=== PATIENT | female | born 1940 | race American Indian/Alaskan Native ===

== ENCOUNTER 2020-10-29 14:31 | Inpatient (IN) | payer MEDICARE ==
[2020-10-30 06:57] LABS: Basophils % (Auto) 0.4 % (0.0-1.8); Eosinophils # (Auto) 0.1 K/mm3 (0.0-0.4); Eosinophils % (Auto) 1.6 % (0.0-4.3); Hematocrit 34.4 % (30.3-42.9); Hemoglobin 11.6 gm/dl (10.1-14.3); Lymphocytes # (Auto) 1.9 K/mm3 (1.2-5.4); Lymphocytes % (Auto) 32.6 % (13.4-35.0); Mean Corpuscular HGB Conc 34 % (30-34); Mean Corpuscular Volume 95 fl (79-97); Monocytes # (Auto) 0.7 K/mm3 (0.0-0.8); Monocytes % (Auto) 11.1 % (0.0-7.3); Platelet Count 283 K/mm3 (140-440); Red Blood Count 3.61 M/mm3 (3.65-5.03)
[2020-10-30 07:58] LABS: Blood Urea Nitrogen 15 mg/dL (7-17); Chol/HDL Ratio 3.01 %; HDL Cholesterol 52 mg/dL (40-59); Hemolysis Index 2; LDL Cholesterol,Direct 97 mg/dL (50-130)
[2020-10-30 07:59] LABS: BUN/Creatinine Ratio 21
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
[2020-10-30] MEDS ORDERED: TRAMADOL HCL PO PRN (08:27)
[2020-10-30] MEDS ORDERED: SERTRALINE HCL PO SCH (10:00)
[2020-10-30] MEDS ORDERED: METFORMIN HCL PO SCH (10:00)
[2020-10-30] MEDS ORDERED: DEPAKOTE PO SCH ×2 (10:00→22:00)
[2020-10-30] MEDS ORDERED: NORVASC PO SCH (10:00)
[2020-10-30] MEDS ORDERED: TRULICITY SUB-Q SCH (10:00)
[2020-10-30] MEDS ORDERED: OMEPRAZOLE PO SCH (10:00)
[2020-10-30] MEDS ORDERED: traMADol 50 MG TAB PO PRN (11:00)
[2020-10-30] MEDS: DIVALPROEX DR 125 MG TAB PO SCH (11:55)
[2020-10-30] MEDS: PANTOPRAZOLE 20 MG TAB PO SCH (11:56)
[2020-10-30] MEDS: metFORMIN 500 MG TAB PO SCH ×2 (11:56→17:12)
[2020-10-30] MEDS: INSULIN LISPRO 100 UNIT/ML VIAL 3 mL SUB-Q SCH ×3 (11:57→22:01)
[2020-10-30] MEDS: amLODIPine 5 MG TAB PO SCH (11:57)
[2020-10-30] MEDS: SERTRALINE 25 MG TAB PO SCH (12:00)
[2020-10-30] MEDS ORDERED: NON-FORMULARY EACH (Gabapentin Capsule) PO SCH (14:00)
[2020-10-30] MEDS: GABAPENTIN 300 MG CAP PO SCH ×2 (14:14→20:45)
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
[2020-10-30] MEDS: DIVALPROEX DR 250 MG TAB PO SCH (22:00)
--- NOTE | 2020-10-31 07:47 | Progress Note ---
Subjective Date of service: 10/31/20 Principal diagnosis: Dementia with Behavioral Disturbance Subjective Comment: During my interview with the patient this morning, she is lying down awake. She is calm and cooperative. The patient says she feels "pretty good" and slept "good." She denies SI/HI and hallucinations of any kind. The patient says, "I'm ready to go but not back to [facility]." Reason for continued inpatient treatment: The patient appears to be at her base line. Will continue to monitor her for behavioral issues and plan for a safe discharge back to [place]. REVIEW OF SYSTEMS Constitutional: Negative for weight loss ENT: Negative for stridor Respiratory: Negative for cough or hemoptysis All other systems reviewed and are negative MENTAL STATUS EXAMINATION General Appearance and Behavior: Age appropriate, good hygiene, wearing appropriate clothes, good eye contact, calm and cooperative. Polite Cooperation: Participating/engaged Psychomotor Behavior: Psychomotor normal Mood: "pretty good" Affect and affective range: Congruent with mood Thought Process: goal oriented Thought Content: None Speech: Normal rate, volume and rhythm Suicidal Ideation: Denies Homicidal Ideation: Denies Impulse Control: Normal Insight and Judgment: Limited insight and judgment Memory: Limited Attention: Normal Orientation: Alert, oriented Assessment and Plan (1) Dementia w/Behavioral Disturbance Current Visit: Yes Status: Acute TREATMENT PLAN Patient admitted for inpatient psychiatric evaluation, medication adjustment and close monitoring The patient's behavior, mood, sleep and appetite will be closely monitored. Patient enrolled in individual and group therapeutic sessions and encouraged to attend. Patient provided with a safe and structured environment. Patient's physical health needs will be addressed by the Hospitalist. Hospitalist Consulted Labs including CBC, CMP, Lipid profile and Hemoglobin A1C levels ordered for baseline reference Social Assessment will be completed and the Hair Rooting Machine Operator will work with patient and family to ensure a suitable and safe disposition Medication adjustment will be made as clinically indicated Continue current treatment regimen Usual Wellness Nondenominational/Preservation: - Start Trazodone 50 mg po QHS - Start Melatonin 5 mg po QHS to promote circadian rhythm - Start [place] [employer]-3 for brain health, reduce impulsivity, and as adjunctive treatment for mood disorder, continue upon discharge given overall benefits. - Start B1 prophylaxis with 200 mg po for 5 days The patient agreed on the treatment plan, understood the risk, benefit, alternative treatment, potential consequence of no treatment, and gave informed consent. Initial Certification I certify that the inpatient psychiatric services are required for treatment that could reasonably be expected to improve the patient's condition for aggression and irritability Estimated days: 7 Post hospital care: primary care provider, psychiatric provider The case was staffed with Dr. Srinivasan Medications and Allergies Allergies Allergy/AdvReac Type Severity Reaction Status Date / Time No Known Allergies Allergy Unverified 10/29/20 14:33 Home Medications Medication Instructions Recorded Confirmed Last Taken Type Depakote Dr 125 mg PO DAILY 10/29/20 10/29/[address] 250 mg PO HS 10/29/20 10/29/20 Unknown History Gabapentin 300 mg PO TID 10/29/20 10/29/20 Unknown History Metformin HCl 1,000 mg PO BID 10/29/20 10/29/20 Unknown History Norvasc 2.5 mg PO DAILY 10/29/20 10/29/20 Unknown History Omeprazole 20 mg PO DAILY 10/29/20 10/29/20 Unknown History Sertraline HCl 75 mg PO DAILY 10/29/20 10/29/20 Unknown History Tramadol HCl 50 mg PO Q6HR PRN 10/29/20 10/29/20 Unknown History Trulicity 0.75 mg SUB-Q QWEEK 10/29/20 10/29/20 Unknown History Active Meds: Active Medications Amlodipine Besylate (Amlodipine 5 Mg Tab) 2.5 mg PO QDAY [facility] Last Admin: 10/30/20 11:57 Dose: Not Given Documented by: Divalproex Sodium (Divalproex Dr 125 Mg Tab) 125 mg PO DAILY [facility] Last Admin: 10/30/20 11:55 Dose: 125 mg Documented by: Divalproex Sodium (Divalproex Dr 250 Mg Tab) 250 mg PO QHS [facility] Last Admin: 10/30/20 22:00 Dose: 250 mg Documented by: Gabapentin (Gabapentin 300 Mg Cap) 300 mg PO TID [facility] Last Admin: 10/30/20 20:45 Dose: 300 mg Documented by: Insulin Human Lispro (Insulin Lispro 100 Unit/Ml Vial 3 Ml) 0 unit SUB-Q ACHS [facility] Last Admin: 10/30/20 22:01 Dose: Not Given Documented by: Metformin HCl (Metformin 500 Mg Tab) 1,000 mg PO BIDDIAB [facility] Last Admin: 10/30/20 17:12 Dose: 1,000 mg Documented by: Miscellaneous Medication (Trulicity) 0.75 mg SUB-Q QWEEK [facility] Pantoprazole Sodium (Pantoprazole 20 Mg Tab) 20 mg PO QDAY [facility] Last Admin: 10/30/20 11:56 Dose: 20 mg Documented by: Sertraline HCl (Sertraline 25 Mg Tab) 75 mg PO QDAY [facility] Last Admin: 10/30/20 12:00 Dose: 75 mg Documented by: Tramadol HCl (Tramadol 50 Mg Tab) 50 mg PO Q6H PRN PRN Reason: Pain, Moderate (4-6) Results - Results Labs/Vitals: Laboratory Last Values WBC 5.9 K/mm3 (4.5-11.0) 10/30/20 06:16 RBC 3.61 M/mm3 (3.65-5.03) L 10/30/20 06:16 Hgb 11.6 gm/dl (10.1-14.3) 10/30/20 06:16 Hct 34.4 % (30.3-42.9) 10/30/20 06:16 MCV 95 fl (79-97) 10/30/20 06:16 MCH 32 pg (28-32) 10/30/20 06:16 MCHC 34 % (30-34) 10/30/20 06:16 RDW 17.0 % (13.2-15.2) H 10/30/20 06:16 Plt Count 283 K/mm3 (140-440) 10/30/20 06:16 Lymph % (Auto) 32.6 % (13.4-35.0) 10/30/20 06:16 [place] % (Auto) 11.1 % (0.0-7.3) H 10/30/20 06:16 Eos % (Auto) 1.6 % (0.0-4.3) 10/30/20 06:16 Baso % (Auto) 0.4 % (0.0-1.8) 10/30/20 06:16 Lymph # (Auto) 1.9 K/mm3 (1.2-5.4) 10/30/20 06:16 [place] # (Auto) 0.7 K/mm3 (0.0-0.8) 10/30/20 06:16 Eos # (Auto) 0.1 K/mm3 (0.0-0.4) 10/30/20 06:16 Baso # (Auto) 0.0 K/mm3 (0.0-0.1) 10/30/20 06:16 Seg Neutrophils % 54.3 % (40.0-70.0) 10/30/20 06:16 Seg Neutrophils # 3.2 K/mm3 (1.8-7.7) 10/30/20 06:16 Sodium 136 mmol/L (137-145) L 10/30/20 06:16 Potassium 4.7 mmol/L (3.6-5.0) 10/30/20 06:16 Chloride 103.1 mmol/L (98-107) 10/30/20 06:16 Carbon Dioxide 24 mmol/L (22-30) 10/30/20 06:16 Anion Gap 14 mmol/L 10/30/20 06:16 BUN 15 mg/dL (7-17) 10/30/20 06:16 Creatinine 0.7 mg/dL (0.6-1.2) 10/30/20 06:16 Estimated GFR > 60 ml/min 10/30/20 06:16 BUN/Creatinine Ratio 21 % 10/30/20 06:16 Glucose 107 mg/dL (65-100) H 10/30/20 06:16 POC Glucose 107 mg/dL (70-105) H 10/30/20 19:18 Hemoglobin A1c 6.7 % (4-6) H 10/30/20 06:16 Calcium 9.0 mg/dL (8.4-10.2) 10/30/20 06:16 Triglycerides 74 mg/dL (2-149) 10/30/20 06:16 Cholesterol 157 mg/dL (50-199) 10/30/20 06:16 LDL Cholesterol Direct 97 mg/dL (50-130) 10/30/20 06:16 HDL Cholesterol 52 mg/dL (40-59) 10/30/20 06:16 Cholesterol/HDL Ratio 3.01 % 10/30/20 06:16 TSH 0.851 mlU/mL (0.270-4.200) 10/30/20 06:16 Last Vital Signs Temp 97.6 F 10/30/20 08:43 Pulse 87 10/30/20 08:43 Resp 20 10/30/20 08:43 BP 104/69 10/30/20 08:43 Pulse Ox 100 10/30/20 08:43
[2020-10-31] MEDS: SERTRALINE 25 MG TAB PO SCH (10:43)
[2020-10-31] MEDS: metFORMIN 500 MG TAB PO SCH ×2 (10:43→17:02)
[2020-10-31] MEDS: DIVALPROEX DR 125 MG TAB PO SCH (10:43)
[2020-10-31] MEDS: GABAPENTIN 300 MG CAP PO SCH ×3 (10:43→20:44)
[2020-10-31] MEDS: amLODIPine 5 MG TAB PO SCH (10:44)
[2020-10-31] MEDS: INSULIN LISPRO 100 UNIT/ML VIAL 3 mL SUB-Q SCH ×4 (10:45→21:06)
[2020-10-31] MEDS: PANTOPRAZOLE 20 MG TAB PO SCH (10:46)
[2020-10-31] MEDS: DIVALPROEX DR 250 MG TAB PO SCH (21:05)
[2020-11-01] MEDS: INSULIN LISPRO 100 UNIT/ML VIAL 3 mL SUB-Q SCH ×4 (08:00→21:03)
--- NOTE | 2020-11-01 08:58 | Progress Note ---
Subjective Date of service: 11/01/20 Principal diagnosis: Dementia with Behavioral Disturbance Subjective Comment: During my interview with the patient this morning, the patient is sitting in the dayroom. She is asking me about going home. The patient says "I feel pretty good now." She denies SI/HI or hallucinations of any kind. Reason for continued inpatient treatment: The patient appears to be at her baseline. Will continue to monitor her for behavioral issues and plan for a safe discharge back to [place]. REVIEW OF SYSTEMS Constitutional: Negative for weight loss ENT: Negative for stridor Respiratory: Negative for cough or hemoptysis All other systems reviewed and are negative MENTAL STATUS EXAMINATION General Appearance and Behavior: Age appropriate, good hygiene, wearing appropriate clothes, good eye contact, calm and cooperative. Polite Cooperation: Participating/engaged Psychomotor Behavior: Psychomotor normal Mood: "pretty good" Affect and affective range: Congruent with mood Thought Process: goal oriented Thought Content: None Speech: Normal rate, volume and rhythm Suicidal Ideation: Denies Homicidal Ideation: Denies Impulse Control: Normal Insight and Judgment: Limited insight and judgment Memory: Limited Attention: Normal Orientation: Alert, oriented Assessment and Plan (1) Dementia w/Behavioral Disturbance Current Visit: Yes Status: Acute TREATMENT PLAN Patient admitted for inpatient psychiatric evaluation, medication adjustment and close monitoring The patient's behavior, mood, sleep and appetite will be closely monitored. Patient enrolled in individual and group therapeutic sessions and encouraged to attend. Patient provided with a safe and structured environment. Patient's physical health needs will be addressed by the Hospitalist. Hospitalist Consulted Labs including CBC, CMP, Lipid profile and Hemoglobin A1C levels ordered for baseline reference Social Assessment will be completed and the Med Admin will work with patient and family to ensure a suitable and safe disposition Medication adjustment will be made as clinically indicated Continue current treatment regimen Usual Wellness [place]/Preservation: - Start Trazodone 50 mg po QHS - Start Melatonin 5 mg po QHS to promote circadian rhythm - Start [place]-3 for brain health, reduce impulsivity, and as adjunctive treatment for mood disorder, continue upon discharge given overall benefits. - Start B1 prophylaxis with 200 mg po for 5 days The patient agreed on the treatment plan, understood the risk, benefit, alternative treatment, potential consequence of no treatment, and gave informed consent. Estimated days: 2 Post hospital care: primary care provider, psychiatric provider The case was staffed with Dr. Srinivasan Medications and Allergies Allergies Allergy/AdvReac Type Severity Reaction Status Date / Time No Known Allergies Allergy Unverified 10/29/20 14:33 Home Medications Medication Instructions Recorded Confirmed Last Taken Type Depakote Dr 125 mg PO DAILY 10/29/20 10/29/[address] 250 mg PO HS 10/29/20 10/29/20 Unknown History Gabapentin 300 mg PO TID 10/29/20 10/29/20 Unknown History Metformin HCl 1,000 mg PO BID 10/29/20 10/29/20 Unknown History Norvasc 2.5 mg PO DAILY 10/29/20 10/29/20 Unknown History Omeprazole 20 mg PO DAILY 10/29/20 10/29/20 Unknown History Sertraline HCl 75 mg PO DAILY 10/29/20 10/29/20 Unknown History Tramadol HCl 50 mg PO Q6HR PRN 10/29/20 10/29/20 Unknown History Trulicity 0.75 mg SUB-Q QWEEK 10/29/20 10/29/20 Unknown History Active Meds: Active Medications Amlodipine Besylate (Amlodipine 5 Mg Tab) 2.5 mg PO QDAY [facility] [place] Last Admin: 10/31/20 10:44 Dose: Not Given Documented by: Divalproex Sodium (Divalproex Dr 125 Mg Tab) 125 mg PO DAILY [facility] [place] Last Admin: 10/31/20 10:43 Dose: 125 mg Documented by: Divalproex Sodium (Divalproex Dr 250 Mg Tab) 250 mg PO QHS [facility] [place] Last Admin: 10/31/20 21:05 Dose: 250 mg Documented by: Gabapentin (Gabapentin 300 Mg Cap) 300 mg PO TID [facility] [place] Last Admin: 10/31/20 20:44 Dose: 300 mg Documented by: Insulin Human Lispro (Insulin Lispro 100 Unit/Ml Vial 3 Ml) 0 unit SUB-Q ACHS [facility] [place] Last Admin: 10/31/20 21:06 Dose: Not Given Documented by: Metformin HCl (Metformin 500 Mg Tab) 1,000 mg PO BIDDIAB [facility] [place] Last Admin: 10/31/20 17:02 Dose: 1,000 mg Documented by: Miscellaneous Medication (Trulicity) 0.75 mg SUB-Q QWEEK [facility] [place] Pantoprazole Sodium (Pantoprazole 20 Mg Tab) 20 mg PO QDAY [facility] [place] Last Admin: 10/31/20 10:46 Dose: 20 mg Documented by: Sertraline HCl (Sertraline 25 Mg Tab) 75 mg PO QDAY [facility] Last Admin: 10/31/20 10:43 Dose: 75 mg Documented by: Tramadol HCl (Tramadol 50 Mg Tab) 50 mg PO Q6H PRN PRN Reason: Pain, Moderate (4-6) Results - Results Labs/Vitals: Laboratory Last Values WBC 5.9 K/mm3 (4.5-11.0) 10/30/20 06:16 RBC 3.61 M/mm3 (3.65-5.03) L 10/30/20 06:16 Hgb 11.6 gm/dl (10.1-14.3) 10/30/20 06:16 Hct 34.4 % (30.3-42.9) 10/30/20 06:16 MCV 95 fl (79-97) 10/30/20 06:16 MCH 32 pg (28-32) 10/30/20 06:16 MCHC 34 % (30-34) 10/30/20 06:16 RDW 17.0 % (13.2-15.2) H 10/30/20 06:16 Plt Count 283 K/mm3 (140-440) 10/30/20 06:16 Lymph % (Auto) 32.6 % (13.4-35.0) 10/30/20 06:16 [place] % (Auto) 11.1 % (0.0-7.3) H 10/30/20 06:16 Eos % (Auto) 1.6 % (0.0-4.3) 10/30/20 06:16 Baso % (Auto) 0.4 % (0.0-1.8) 10/30/20 06:16 Lymph # (Auto) 1.9 K/mm3 (1.2-5.4) 10/30/20 06:16 [place] # (Auto) 0.7 K/mm3 (0.0-0.8) 10/30/20 06:16 Eos # (Auto) 0.1 K/mm3 (0.0-0.4) 10/30/20 06:16 Baso # (Auto) 0.0 K/mm3 (0.0-0.1) 10/30/20 06:16 Seg Neutrophils % 54.3 % (40.0-70.0) 10/30/20 06:16 Seg Neutrophils # 3.2 K/mm3 (1.8-7.7) 10/30/20 06:16 Sodium 136 mmol/L (137-145) L 10/30/20 06:16 Potassium 4.7 mmol/L (3.6-5.0) 10/30/20 06:16 Chloride 103.1 mmol/L (98-107) 10/30/20 06:16 Carbon Dioxide 24 mmol/L (22-30) 10/30/20 06:16 Anion Gap 14 mmol/L 10/30/20 06:16 BUN 15 mg/dL (7-17) 10/30/20 06:16 Creatinine 0.7 mg/dL (0.6-1.2) 10/30/20 06:16 Estimated GFR > 60 ml/min 10/30/20 06:16 BUN/Creatinine Ratio 21 % 10/30/20 06:16 Glucose 107 mg/dL (65-100) H 10/30/20 06:16 POC Glucose 95 mg/dL (70-105) 11/01/20 06:28 Hemoglobin A1c 6.7 % (4-6) H 10/30/20 06:16 Calcium 9.0 mg/dL (8.4-10.2) 10/30/20 06:16 Triglycerides 74 mg/dL (2-149) 10/30/20 06:16 Cholesterol 157 mg/dL (50-199) 10/30/20 06:16 LDL Cholesterol Direct 97 mg/dL (50-130) 10/30/20 06:16 HDL Cholesterol 52 mg/dL (40-59) 10/30/20 06:16 Cholesterol/HDL Ratio 3.01 % 10/30/20 06:16 TSH 0.851 mlU/mL (0.270-4.200) 10/30/20 06:16 Last Vital Signs Temp 97.3 F L 10/31/20 19:35 Pulse 89 10/31/20 19:35 Resp 16 10/31/20 19:35 BP 101/58 10/31/20 19:35 Pulse Ox 100 10/31/20 19:35
[2020-11-01] MEDS: metFORMIN 500 MG TAB PO SCH ×2 (09:28→17:07)
[2020-11-01] MEDS: DIVALPROEX DR 125 MG TAB PO SCH (09:28)
[2020-11-01] MEDS: GABAPENTIN 300 MG CAP PO SCH ×3 (09:28→20:19)
[2020-11-01] MEDS: PANTOPRAZOLE 20 MG TAB PO SCH (09:28)
[2020-11-01] MEDS: SERTRALINE 25 MG TAB PO SCH (09:29)
[2020-11-01] MEDS: amLODIPine 5 MG TAB PO SCH (09:30)
[2020-11-01] MEDS: DIVALPROEX DR 250 MG TAB PO SCH (21:02)
[2020-11-02] MEDS ORDERED: clonazePAM 0.5 MG TAB PO PRN (08:55)
--- NOTE | 2020-11-02 08:55 | Progress Note ---
Subjective Date of service: 11/02/20 Principal diagnosis: Dementia with Behavioral Disturbance Subjective Comment: During my interview with the patient this morning, the patient lying down. She is asking to go home. She denies SI/HI. She also denies hallucinations of any kind. Although the patient has been calm, It was reported that the patient's irritability and aggression was worsening at the halfway. Reason for continued inpatient treatment: The patient appears to be at her baseline. Will continue to monitor her for behavioral issues and plan for a safe discharge back to [place]. REVIEW OF SYSTEMS Constitutional: Negative for weight loss ENT: Negative for stridor Respiratory: Negative for cough or hemoptysis All other systems reviewed and are negative MENTAL STATUS EXAMINATION General Appearance and Behavior: Age appropriate, good hygiene, wearing appropriate clothes, good eye contact, calm and cooperative. Polite Cooperation: Participating/engaged Psychomotor Behavior: Psychomotor normal Mood: "pretty good" Affect and affective range: Congruent with mood Thought Process: goal oriented Thought Content: None Speech: Normal rate, volume and rhythm Suicidal Ideation: Denies Homicidal Ideation: Denies Impulse Control: Normal Insight and Judgment: Limited insight and judgment Memory: Limited Attention: Normal Orientation: Alert, oriented Assessment and Plan (1) Dementia w/Behavioral Disturbance Current Visit: Yes Status: Acute TREATMENT PLAN Patient admitted for inpatient psychiatric evaluation, medication adjustment and close monitoring The patient's behavior, mood, sleep and appetite will be closely monitored. Patient enrolled in individual and group therapeutic sessions and encouraged to attend. Patient provided with a safe and structured environment. Patient's physical health needs will be addressed by the Hospitalist. Hospitalist Consulted Labs including CBC, CMP, Lipid profile and Hemoglobin A1C levels ordered for baseline reference Social Assessment will be completed and the Curtain Fitter will work with patient and family to ensure a suitable and safe disposition Medication adjustment will be made as clinically indicated Start Risperidone 0.25mg po BID Usual Wellness [employer]/Preservation: - Start Trazodone 50 mg po QHS - Start Melatonin 5 mg po QHS to promote circadian rhythm - Start [place]-3 for brain health, reduce impulsivity, and as adjunctive treatment for mood disorder, continue upon discharge given overall benefits. - Start B1 prophylaxis with 200 mg po for 5 days The patient agreed on the treatment plan, understood the risk, benefit, alternative treatment, potential consequence of no treatment, and gave informed consent. Estimated days: 2 Post hospital care: primary care provider, psychiatric provider The case was staffed with Dr. Srinivasan Medications and Allergies Allergies Allergy/AdvReac Type Severity Reaction Status Date / Time No Known Allergies Allergy Unverified 10/29/20 14:33 Home Medications Medication Instructions Recorded Confirmed Last Taken Type Gabapentin 300 mg PO TID 10/29/20 10/29/20 Unknown History Metformin HCl 1,000 mg PO BID 10/29/20 10/29/20 Unknown History Norvasc 2.5 mg PO DAILY 10/29/20 10/29/20 Unknown History Omeprazole 20 mg PO DAILY 10/29/20 10/29/20 Unknown History Tramadol HCl 50 mg PO Q6HR PRN 10/29/20 10/29/20 Unknown History Trulicity 0.75 mg SUB-Q QWEEK 10/29/20 10/29/[address] 125 mg PO DAILY #30 11/02/[address] 250 mg PO HS #30 11/02/20 Unknown Rx Sertraline HCl 75 mg PO DAILY #30 11/02/20 Unknown Rx Active Meds: Active Medications Amlodipine Besylate (Amlodipine 5 Mg Tab) 2.5 mg PO QDAY [facility] Last Admin: 11/01/20 09:30 Dose: Not Given Documented by: Divalproex Sodium (Divalproex Dr 125 Mg Tab) 125 mg PO DAILY [facility] Last Admin: 11/01/20 09:28 Dose: 125 mg Documented by: Divalproex Sodium (Divalproex Dr 250 Mg Tab) 250 mg PO QHS [facility] Last Admin: 11/01/20 21:02 Dose: 250 mg Documented by: Gabapentin (Gabapentin 300 Mg Cap) 300 mg PO TID [facility] Last Admin: 11/01/20 20:19 Dose: 300 mg Documented by: Insulin Human Lispro (Insulin Lispro 100 Unit/Ml Vial 3 Ml) 0 unit SUB-Q ACHS [facility] Last Admin: 11/01/20 21:03 Dose: Not Given Documented by: Metformin HCl (Metformin 500 Mg Tab) 1,000 mg PO BIDDIAB [facility] Last Admin: 11/01/20 17:07 Dose: 1,000 mg Documented by: Miscellaneous Medication (Trulicity) 0.75 mg SUB-Q QWEEK [facility] Pantoprazole Sodium (Pantoprazole 20 Mg Tab) 20 mg PO QDAY [facility] Last Admin: 11/01/20 09:28 Dose: 20 mg Documented by: Sertraline HCl (Sertraline 25 Mg Tab) 75 mg PO QDAY [facility] Last Admin: 11/01/20 09:29 Dose: 75 mg Documented by: Tramadol HCl (Tramadol 50 Mg Tab) 50 mg PO Q6H PRN PRN Reason: Pain, Moderate (4-6) Results - Results Labs/Vitals: Laboratory Last Values WBC 5.9 K/mm3 (4.5-11.0) 10/30/20 06:16 RBC 3.61 M/mm3 (3.65-5.03) L 10/30/20 06:16 Hgb 11.6 gm/dl (10.1-14.3) 10/30/20 06:16 Hct 34.4 % (30.3-42.9) 10/30/20 06:16 MCV 95 fl (79-97) 10/30/20 06:16 MCH 32 pg (28-32) 10/30/20 06:16 MCHC 34 % (30-34) 10/30/20 06:16 RDW 17.0 % (13.2-15.2) H 10/30/20 06:16 Plt Count 283 K/mm3 (140-440) 10/30/20 06:16 Lymph % (Auto) 32.6 % (13.4-35.0) 10/30/20 06:16 [place] % (Auto) 11.1 % (0.0-7.3) H 10/30/20 06:16 Eos % (Auto) 1.6 % (0.0-4.3) 10/30/20 06:16 Baso % (Auto) 0.4 % (0.0-1.8) 10/30/20 06:16 Lymph # (Auto) 1.9 K/mm3 (1.2-5.4) 10/30/20 06:16 [place] # (Auto) 0.7 K/mm3 (0.0-0.8) 10/30/20 06:16 Eos # (Auto) 0.1 K/mm3 (0.0-0.4) 10/30/20 06:16 Baso # (Auto) 0.0 K/mm3 (0.0-0.1) 10/30/20 06:16 Seg Neutrophils % 54.3 % (40.0-70.0) 10/30/20 06:16 Seg Neutrophils # 3.2 K/mm3 (1.8-7.7) 10/30/20 06:16 Sodium 136 mmol/L (137-145) L 10/30/20 06:16 Potassium 4.7 mmol/L (3.6-5.0) 10/30/20 06:16 Chloride 103.1 mmol/L (98-107) 10/30/20 06:16 Carbon Dioxide 24 mmol/L (22-30) 10/30/20 06:16 Anion Gap 14 mmol/L 10/30/20 06:16 BUN 15 mg/dL (7-17) 10/30/20 06:16 Creatinine 0.7 mg/dL (0.6-1.2) 10/30/20 06:16 Estimated GFR > 60 ml/min 10/30/20 06:16 BUN/Creatinine Ratio 21 % 10/30/20 06:16 Glucose 107 mg/dL (65-100) H 10/30/20 06:16 POC Glucose 109 mg/dL (70-105) H 11/02/20 06:16 Hemoglobin A1c 6.7 % (4-6) H 10/30/20 06:16 Calcium 9.0 mg/dL (8.4-10.2) 10/30/20 06:16 Triglycerides 74 mg/dL (2-149) 10/30/20 06:16 Cholesterol 157 mg/dL (50-199) 10/30/20 06:16 LDL Cholesterol Direct 97 mg/dL (50-130) 10/30/20 06:16 HDL Cholesterol 52 mg/dL (40-59) 10/30/20 06:16 Cholesterol/HDL Ratio 3.01 % 10/30/20 06:16 TSH 0.851 mlU/mL (0.270-4.200) 10/30/20 06:16 Last Vital Signs Temp 98.3 F 11/01/20 22:00 Pulse 84 11/01/20 22:00 Resp 18 11/01/20 22:00 BP 96/48 11/01/20 22:00 Pulse Ox 100 11/01/20 22:00
[2020-11-02] MEDS: GABAPENTIN 300 MG CAP PO SCH ×3 (08:56→21:35)
[2020-11-02] MEDS: INSULIN LISPRO 100 UNIT/ML VIAL 3 mL SUB-Q SCH ×4 (08:56→22:05)
[2020-11-02] MEDS: metFORMIN 500 MG TAB PO SCH ×2 (08:56→16:26)
[2020-11-02] MEDS: PANTOPRAZOLE 20 MG TAB PO SCH (09:33)
[2020-11-02] MEDS: SERTRALINE 25 MG TAB PO SCH (09:33)
[2020-11-02] MEDS: DIVALPROEX DR 125 MG TAB PO SCH (09:33)
[2020-11-02] MEDS: amLODIPine 5 MG TAB PO SCH (09:33)
[2020-11-02] MEDS: risperiDONE 0.25 MG TAB PO SCH ×2 (09:34→21:35)
[2020-11-02] MEDS ORDERED: risperiDONE 0.25 MG TAB PO SCH (10:00)
[2020-11-02] MEDS: DIVALPROEX DR 250 MG TAB PO SCH (21:35)
[2020-11-03] MEDS: INSULIN LISPRO 100 UNIT/ML VIAL 3 mL SUB-Q SCH (07:30)
--- NOTE | 2020-11-03 08:58 | Discharge Summary ---
Providers - Providers Date of Admission: 10/29/20 17:52 Date of discharge: 11/03/20 Attending physician: ALINE SAHA MD 10/29/20 15:34 Consult to Physician [CONS] Routine Comment: Consulting Provider: TAYE URBINA Physician Instructions: Reason For Exam: Medic [place] Primary care physician: POTATO CHIP SORTER Hospitalization Reason for admission: aggression Admitting Diagnosis: F02.81 - DEMENTIA IN OTH DISEASES CLASSD ELSWHR W BEHAVIORAL DISTURB Condition: Stable Hospital course: The patient was provided inpatient psychiatric treatment with safe and supportive care, medication adjustment, adverse effect monitoring, medical evaluations, medical treatments, assessment and psycho-education. The patient's mood, cognition, behavior, moral support are improved and stabilized. St the time of discharge, the patient had no endangering behavior and no debilitating adverse effects. The patient agreed on potential consequences of no treatment and gave informed consent. Disposition: [place]-03 [facility] Time spent for discharge: 38 Allergies/Adverse Reactions: Allergies No Known Allergies Allergy (Unverified 10/29/20 14:33) Vital Signs: Last Vital Signs Temp 98.0 F 11/02/20 08:52 Pulse 68 11/02/20 09:33 Resp 18 11/02/20 08:52 BP 122/69 11/02/20 09:33 Pulse Ox 100 11/02/20 08:52 Last Lab: Laboratory Last Values WBC 5.9 K/mm3 (4.5-11.0) 10/30/20 06:16 RBC 3.61 M/mm3 (3.65-5.03) L 10/30/20 06:16 Hgb 11.6 gm/dl (10.1-14.3) 10/30/20 06:16 Hct 34.4 % (30.3-42.9) 10/30/20 06:16 MCV 95 fl (79-97) 10/30/20 06:16 MCH 32 pg (28-32) 10/30/20 06:16 MCHC 34 % (30-34) 10/30/20 06:16 RDW 17.0 % (13.2-15.2) H 10/30/20 06:16 Plt Count 283 K/mm3 (140-440) 10/30/20 06:16 Lymph % (Auto) 32.6 % (13.4-35.0) 10/30/20 06:16 [place] % (Auto) 11.1 % (0.0-7.3) H 10/30/20 06:16 Eos % (Auto) 1.6 % (0.0-4.3) 10/30/20 06:16 Baso % (Auto) 0.4 % (0.0-1.8) 10/30/20 06:16 Lymph # (Auto) 1.9 K/mm3 (1.2-5.4) 10/30/20 06:16 [place] # (Auto) 0.7 K/mm3 (0.0-0.8) 10/30/20 06:16 Eos # (Auto) 0.1 K/mm3 (0.0-0.4) 10/30/20 06:16 Baso # (Auto) 0.0 K/mm3 (0.0-0.1) 10/30/20 06:16 Seg Neutrophils % 54.3 % (40.0-70.0) 10/30/20 06:16 Seg Neutrophils # 3.2 K/mm3 (1.8-7.7) 10/30/20 06:16 Sodium 136 mmol/L (137-145) L 10/30/20 06:16 Potassium 4.7 mmol/L (3.6-5.0) 10/30/20 06:16 Chloride 103.1 mmol/L (98-107) 10/30/20 06:16 Carbon Dioxide 24 mmol/L (22-30) 10/30/20 06:16 Anion Gap 14 mmol/L 10/30/20 06:16 BUN 15 mg/dL (7-17) 10/30/20 06:16 Creatinine 0.7 mg/dL (0.6-1.2) 10/30/20 06:16 Estimated GFR > 60 ml/min 10/30/20 06:16 BUN/Creatinine Ratio 21 % 10/30/20 06:16 Glucose 107 mg/dL (65-100) H 10/30/20 06:16 POC Glucose 96 mg/dL (70-105) 11/03/20 07:26 Hemoglobin A1c 6.7 % (4-6) H 10/30/20 06:16 Calcium 9.0 mg/dL (8.4-10.2) 10/30/20 06:16 Triglycerides 74 mg/dL (2-149) 10/30/20 06:16 Cholesterol 157 mg/dL (50-199) 10/30/20 06:16 LDL Cholesterol Direct 97 mg/dL (50-130) 10/30/20 06:16 HDL Cholesterol 52 mg/dL (40-59) 10/30/20 06:16 Cholesterol/HDL Ratio 3.01 % 10/30/20 06:16 TSH 0.851 mlU/mL (0.270-4.200) 10/30/20 06:16 Core Measure Documentation - Palliative Care Palliative Care/ Comfort Measures: Not Applicable - Core Measures Any of the following diagnoses?: none Exam - Constitutional Vitals: Temp Pulse Resp BP Pulse Ox 98.0 F 68 18 122/69 100 11/02/20 08:52 11/02/20 09:33 11/02/20 08:52 11/02/20 09:33 11/02/20 08:52 General appearance: Present: no acute distress - EENT Eyes: Present: PERRL, EOM intact ENT: hearing intact, clear oral mucosa - Neck Neck: Present: supple, normal ROM - Respiratory Respiratory effort: normal Plan Activity: advance as tolerated Weight Bearing Status: Weight Bear as Tolerated Care Plan Goals: Maintain good and stable mental health Plan of Treatment: The patient should be compliant with medications, not to use drugs, and not to drink alcohol. The patient understands that if suicidal ideas, homicidal ideas or any endangering feeling arise, the patient should seek assistance including, but not limited to crisis hotline, and emergency room. Health Concerns: Diabetes, HTN, Dementia Assessment: Dementia w/Behavioral Disturbance Follow up with: PRIMARY CARE, [Primary Care Provider] - 7 Days Prescriptions: Depakote Dr 250 mg PO HS #[address] 125 mg PO DAILY #30 risperiDONE [RisperDAL] 0.25 mg PO BID #60 tablet Sertraline HCl 75 mg PO DAILY #30
[2020-11-03] MEDS: DIVALPROEX DR 125 MG TAB PO SCH (09:36)
[2020-11-03] MEDS: risperiDONE 0.25 MG TAB PO SCH (09:36)
[2020-11-03] MEDS: PANTOPRAZOLE 20 MG TAB PO SCH (09:36)
[2020-11-03] MEDS: metFORMIN 500 MG TAB PO SCH (09:36)
[2020-11-03] MEDS: GABAPENTIN 300 MG CAP PO SCH (09:36)
[2020-11-03] MEDS: amLODIPine 5 MG TAB PO SCH (09:39)
[2020-11-03 09:43] VITALS: BP 92/42
== END 2020-11-03 18:10 | DRG 884 ==
LOC: 3A 14:31 → UNDOADMIN 14:31 → 5A 17:52
PROVIDERS: ADMIT Psychiatry & Neurology Psychiatry; ATTEND Psychiatry & Neurology Psychiatry
DX: F03.91 Unspecified dementia, unspecified severity, with behavioral disturbance (principal); Z79.899 Other long term (current) drug therapy; I10 Essential (primary) hypertension; E11.9 Type 2 diabetes mellitus without complications; Z79.84 Long term (current) use of oral hypoglycemic drugs; Z20.828 Contact with and (suspected) exposure to other viral communicable diseases
CPT/HCPCS: 36415; 80048; 80061; 82962; 83036; 84443; 85025; G0378; J1815; U0003

== ENCOUNTER 2021-06-23 22:16 | Emergency (ER) | payer MEDICARE ==
[2021-06-24 01:04] VITALS: BP 104/54
== END 2021-06-24 19:09 | disposition home or self-care (01) ==
LOC: ED 22:16
DX: U07.1 COVID-19 (principal); R41.82 Altered mental status, unspecified; F29 Unspecified psychosis not due to a substance or known physiological condition; F03.91 Unspecified dementia, unspecified severity, with behavioral disturbance; F17.200 Nicotine dependence, unspecified, uncomplicated
CPT/HCPCS: 36415; 70450; 80048; 80307; 81001; 85025; 99285; U0003; 80320; 99284; G0480

== ENCOUNTER 2022-05-11 23:57 | Inpatient (IN) | payer MEDICARE ==
[2022-05-12] MEDS ORDERED: SODIUM CHLORIDE 0.9% 1000 ML 1,000 ML IV ONE ×5 (01:05→15:06)
--- NOTE | 2022-05-12 01:18 | Emergency Department Report ---
ED Fall HPI - General Chief Complaint: Fall Stated Complaint: HEMATOMA ON HEAD Time Seen by Provider: 05/12/22 00:40 Source: EMS Mode of arrival: Stretcher Limitations: Altered Mental Status, Physical Limitation - History of Present Illness Initial Comments: 81-year-old female with past medical history Alzheimer's disease, type 2 diabetes, and other multiple chronic medical conditions presents [facility] the hospital [facility] was unwitnessed. Patient presents with left forehead hematoma. Unable to provide history of present illness due to underlying dementia. Patient noted to have mild hypotension upon arrival - Related Data Home Medications Medication Instructions Recorded Confirmed Last Taken Gabapentin 300 mg PO TID 10/29/20 10/29/20 Unknown Metformin HCl 1,000 mg PO BID 10/29/20 10/29/20 Unknown Norvasc 2.5 mg PO DAILY 10/29/20 10/29/20 Unknown Omeprazole 20 mg PO DAILY 10/29/20 10/29/20 Unknown Tramadol HCl 50 mg PO Q6HR PRN 10/29/20 10/29/20 Unknown Trulicity 0.75 mg SUB-Q QWEEK 10/29/20 10/29/20 Unknown Previous Rx's Medication Instructions Recorded Last Taken Type Depakote Dr 125 mg PO DAILY #30 11/02/[address] 250 mg PO HS #30 11/02/20 Unknown Rx Sertraline HCl 75 mg PO DAILY #30 11/02/20 Unknown Rx risperiDONE [RisperDAL] 0.25 mg PO BID #60 tablet 11/02/20 Unknown Rx traMADoL [Ultram 50 MG tab] 50 mg PO Q6H PRN tablet 11/02/20 Unknown Rx Allergies Allergy/AdvReac Type Severity Reaction Status Date / Time No Known Allergies Allergy Unverified 10/29/20 14:33 ED Review of Systems ROS: Stated complaint: HEMATOMA ON HEAD Other details as noted in HPI Comment: Unobtainable due to pts medical conditions ED Past Medical Hx - Past Medical History Hx Renal Disease: No Hx Arthritis: No Hx Seizures: No Hx Dementia: Yes - Surgical History Hx Cholecystectomy: No - Social History Smoking Status: Current Every Day Smoker Substance Use Type: None - Medications Home Medications: Home Medications Medication Instructions Recorded Confirmed Last Taken Type Gabapentin 300 mg PO TID 10/29/20 10/29/20 Unknown History Metformin HCl 1,000 mg PO BID 10/29/20 10/29/20 Unknown History Norvasc 2.5 mg PO DAILY 10/29/20 10/29/20 Unknown History Omeprazole 20 mg PO DAILY 10/29/20 10/29/20 Unknown History Tramadol HCl 50 mg PO Q6HR PRN 10/29/20 10/29/20 Unknown History Trulicity 0.75 mg SUB-Q QWEEK 10/29/20 10/29/[address] 125 mg PO DAILY #30 11/02/[address] 250 mg PO HS #30 11/02/20 Unknown Rx Sertraline HCl 75 mg PO DAILY #30 11/02/20 Unknown Rx risperiDONE [RisperDAL] 0.25 mg PO BID #60 tablet 11/02/20 Unknown Rx traMADoL [Ultram 50 MG tab] 50 mg PO Q6H PRN tablet 11/02/20 Unknown Rx ED Physical Exam - General Limitations: No Limitations - Other Other exam information: General: No acute distress Head: Hematoma to left forehead Eyes: normal appearance ENT: Dry mucous membrane Neck: Normal appearance, no midline tenderness Chest: Clear to auscultation bilaterally CV: Regular rate and rhythm Abdomen: Soft, normal bowel sounds, nontender, nondistended, no rebound or guarding, previous surgical scars noted Back: Normal inspection Extremity: Normal inspection, full range of motion Neuro: Alert O, minimally verbal difficult to understand speech. Equal handgrip. Minimal lower extremity movement Psych: Appropriate behavior Skin: No rash ED Course Vital Signs 05/12/22 05/12/22 05/12/22 00:14 00:37 00:46 Temperature 97.2 F L Pulse Rate 98 H 91 H 94 H Respiratory 18 12 18 Rate Blood Pressure 87/30 Blood Pressure 118/78 [Left] O2 Sat by Pulse 98 Oximetry 05/12/22 05/12/22 05/12/22 01:00 01:15 01:16 Temperature 98.4 F Pulse Rate 89 88 106 H Respiratory 16 14 13 Rate Blood Pressure 93/44 86/43 93/44 Blood Pressure 86/43 [Left] O2 Sat by Pulse 96 Oximetry 05/12/22 05/12/22 05/12/22 01:30 01:45 02:00 Temperature Pulse Rate 92 H 91 H 89 Respiratory 15 16 13 Rate Blood Pressure 95/47 101/39 101/39 Blood Pressure [Left] O2 Sat by Pulse 100 90 Oximetry 05/12/22 05/12/22 05/12/22 02:16 02:30 02:46 Temperature Pulse Rate 106 H 78 78 Respiratory 13 10 L 11 L Rate Blood Pressure 106/47 101/39 101/39 Blood Pressure [Left] O2 Sat by Pulse 96 Oximetry 05/12/22 05/12/22 05/12/22 03:00 03:16 03:30 Temperature Pulse Rate 77 76 88 Respiratory 11 L 10 L 15 Rate Blood Pressure 97/45 97/45 90/40 Blood Pressure [Left] O2 Sat by Pulse 98 94 98 Oximetry 05/12/22 05/12/22 03:46 04:00 Temperature Pulse Rate 89 94 H Respiratory 13 19 Rate Blood Pressure 90/40 106/57 Blood Pressure [Left] O2 Sat by Pulse Oximetry ED Medical Decision Making - Lab Data Result diagrams: 05/12/22 01:24 05/12/22 01:24 Lab Results 05/12/22 05/12/22 05/12/22 Range/Units 01:24 01:24 01:24 WBC 15.6 H (4.5-11.0) K/mm3 RBC 3.29 L (3.65-5.03) M/mm3 Hgb 9.3 L (10.1-14.3) gm/dl Hct 29.2 L (30.3-42.9) % MCV 89 (79-97) fl MCH 28 (28-32) pg MCHC 32 (30-34) % RDW 23.8 H (13.2-15.2) % Plt Count 545 H (140-440) K/mm3 Lymph % (Auto) 14.9 (13.4-35.0) % [place] % (Auto) 12.0 H (0.0-7.3) % Eos % (Auto) 0.2 (0.0-4.3) % Baso % (Auto) 0.5 (0.0-1.8) % Lymph # (Auto) 2.3 (1.2-5.4) K/mm3 [place] # (Auto) 1.9 H (0.0-0.8) K/mm3 Eos # (Auto) 0.0 (0.0-0.4) K/mm3 Baso # (Auto) 0.1 (0.0-0.1) K/mm3 Seg Neutrophils % 72.4 H (40.0-70.0) % Seg Neutrophils # 11.3 H (1.8-7.7) K/mm3 PT 14.6 (12.2-14.9) Sec. INR 1.00 (0.87-1.13) APTT 34.9 (24.2-36.6) Sec. Sodium 139 (137-145) mmol/L Potassium 4.4 (3.6-5.0) mmol/L Chloride 106.5 (98-107) mmol/L Carbon Dioxide 21 L (22-30) mmol/L Anion Gap 16 mmol/L BUN 12 (7-17) mg/dL Creatinine 0.6 (0.6-1.2) mg/dL Estimated GFR > 60 ml/min BUN/Creatinine Ratio 20 % Glucose 145 H (65-100) mg/dL Calcium 9.0 (8.4-10.2) mg/dL Total Bilirubin < 0.20 (0.1-1.2) mg/dL AST 18 (5-40) units/L ALT 7 (7-56) units/L Alkaline Phosphatase 131 H (35-129) units/L Troponin T (0.00-0.029) ng/mL Total Protein 6.4 (6.3-8.2) g/dL Albumin 1.8 L (3.9-5) g/dL Albumin/Globulin Ratio 0.4 % Triglycerides (2-149) mg/dL Cholesterol (50-199) mg/dL LDL Cholesterol Direct (50-130) mg/dL HDL Cholesterol (40-59) mg/dL Cholesterol/HDL Ratio % Urine Color (Yellow) Urine Turbidity (Clear) Urine pH (5.0-7.0) Ur Specific [place] (1.003-1.030) Urine Protein (Negative) mg/dL Urine Glucose (UA) (Negative) mg/dL Urine Ketones (Negative) mg/dL Urine Blood (Negative) Urine Nitrite (Negative) Urine Bilirubin (Negative) Urine Urobilinogen (<2.0) mg/dL Ur Leukocyte Esterase (Negative) Urine WBC (Auto) (0.0-6.0) /HPF Urine RBC (Auto) (0.0-6.0) /HPF U Epithel Cells (Auto) (0-13.0) /HPF Urine Bacteria (Auto) (Negative) /HPF Urine Mucus /HPF Urine Yeast (Budding) /HPF 05/12/22 05/12/22 Range/Units 02:18 Unknown WBC (4.5-11.0) K/mm3 RBC (3.65-5.03) M/mm3 Hgb (10.1-14.3) gm/dl Hct (30.3-42.9) % MCV (79-97) fl MCH (28-32) pg MCHC (30-34) % RDW (13.2-15.2) % Plt Count (140-440) K/mm3 Lymph % (Auto) (13.4-35.0) % [place] % (Auto) (0.0-7.3) % Eos % (Auto) (0.0-4.3) % Baso % (Auto) (0.0-1.8) % Lymph # (Auto) (1.2-5.4) K/mm3 [place] # (Auto) (0.0-0.8) K/mm3 Eos # (Auto) (0.0-0.4) K/mm3 Baso # (Auto) (0.0-0.1) K/mm3 Seg Neutrophils % (40.0-70.0) % Seg Neutrophils # (1.8-7.7) K/mm3 PT (12.2-14.9) Sec. INR (0.87-1.13) APTT (24.2-36.6) Sec. Sodium (137-145) mmol/L Potassium (3.6-5.0) mmol/L Chloride (98-107) mmol/L Carbon Dioxide (22-30) mmol/L Anion Gap mmol/L BUN (7-17) mg/dL Creatinine (0.6-1.2) mg/dL Estimated GFR ml/min BUN/Creatinine Ratio % Glucose (65-100) mg/dL Calcium (8.4-10.2) mg/dL Total Bilirubin (0.1-1.2) mg/dL AST (5-40) units/L ALT (7-56) units/L Alkaline Phosphatase (35-129) units/L Troponin T 0.161 H* (0.00-0.029) ng/mL Total Protein (6.3-8.2) g/dL Albumin (3.9-5) g/dL Albumin/Globulin Ratio % Triglycerides 92 (2-149) mg/dL Cholesterol 116 (50-199) mg/dL LDL Cholesterol Direct 36 L (50-130) mg/dL HDL Cholesterol 48 (40-59) mg/dL Cholesterol/HDL Ratio 2.41 % Urine Color Yellow (Yellow) Urine Turbidity Slightly-cloudy (Clear) Urine pH 6.0 (5.0-7.0) Ur Specific [place] 1.016 (1.003-1.030) Urine Protein <15 mg/dl (Negative) mg/dL Urine Glucose (UA) Neg (Negative) mg/dL Urine Ketones Neg (Negative) mg/dL Urine Blood Mod (Negative) Urine Nitrite Neg (Negative) Urine Bilirubin Neg (Negative) Urine Urobilinogen < 2.0 (<2.0) mg/dL Ur Leukocyte Esterase Lg (Negative) Urine WBC (Auto) 35.0 H (0.0-6.0) /HPF Urine RBC (Auto) 4.0 (0.0-6.0) /HPF U Epithel Cells (Auto) 7.0 (0-13.0) /HPF Urine Bacteria (Auto) 2+ (Negative) /HPF Urine Mucus Few /HPF Urine Yeast (Budding) 2+ /HPF - EKG Data -: EKG Interpreted by Ut EKG shows normal: sinus rhythm, ST-T waves (no stemi) Rate: normal - Radiology Data Radiology results: report reviewed CT CERVICAL SPINE WITHOUT CONTRAST INDICATION / CLINICAL INFORMATION: Fall with a hematoma, Dementia. TECHNIQUE: Axial CT images were obtained through the cervical spine. Sagittal and coronal reformatted images were produced. All CT scans at this location are performed using CT dose reduction for ALARA by means of automated exposure control. COMPARISON: None available. FINDINGS: VERTEBRAE: No acute fracture. There is sequela of prior trauma to the C7 spinous process. ALIGNMENT: No significant abnormality. DISC SPACES: Severe degenerative disc disease throughout the cervical spine. FACET JOINTS: Severe degenerative facet disease throughout the cervical spine. CRANIOCERVICAL JUNCTION:No significant abnormality. SPINAL CANAL: No significant abnormality. PARASPINAL SOFT TISSUES: No significant abnormality. ADDITIONAL FINDINGS: None. LUNG APICES: Incidentally noted apparent right subclavian artery, otherwise no significant abnormality of visualized lungs. IMPRESSION: 1. No acute fracture or static subluxation of the cervical spine. 2. Severe degenerative disc and facet disease of the cervical spine. CT HEAD WITHOUT CONTRAST INDICATION / CLINICAL INFORMATION: Fall with a hematoma, Dementia. TECHNIQUE: All CT scans at this location are performed using CT dose reduction for ALARA by means of automated exposure control. COMPARISON: 06/24/2021 FINDINGS: HEMORRHAGE: None. EXTRA-AXIAL SPACES: Moderately prominent likely related to cortical atrophy. VENTRICULAR SYSTEM: Moderately enlarged likely related to central atrophy. CEREBRAL PARENCHYMA: There are periventricular hypodensities consistent with microvascular ischemic change. No acute territorial infarct. MIDLINE SHIFT / HERNIATION: None. CEREBELLUM / BRAINSTEM: No significant abnormality. ORBITS: Normal as visualized SOFT TISSUES: There is a scalp hematoma overlying the left frontal bone. SKULL: No significant abnormality. PARANASAL SINUSES / MASTOID AIR CELLS: Normal as visualized ADDITIONAL FINDINGS: None. IMPRESSION: 1. No acute intracranial abnormality in the setting of senescent changes. 2. Scalp hematoma overlying the left frontal bone.. - Medical Decision Making 81-year-old female with dementia presents to the hospital with scalp hematoma after a witnessed fall. Patient had mild hypotension after arrival therefore additional work-up including labs and UA was obtained. CT imaging of head and cervical spine do not reveal any acute abnormality other than scalp hematoma. Patient has a leukocytosis with signs of a urinary tract infection and mild troponin elevation with normal renal function. Patient's mild hypotension responding to IV fluid bolus. Additional orders for blood culture, lactic acid, and 30 mill per KG bolus of normal saline ordered as per sepsis protocol. Repeat troponin pending. IV Rocephin ordered for UTI. Patient to be admitted to the hospitalist service for further treatment Critical Care Time: No Critical care attestation.: If time is entered above; I have spent that time in minutes in the direct care of this critically ill patient, excluding procedure time. ED Disposition Clinical Impression: UTI (urinary tract infection), Dementia, Hypotension, Elevated troponin, Fall, Scalp hematoma Disposition: ADMITTED INPATIENT Is pt being admited?: Yes Condition: Stable Referrals: PRIMARY CARE, [Primary Care Provider] - 3-5 Days Time of Disposition: 05:06 (Dr mejias/hospitalist)
[2022-05-12 01:48] LABS: Basophils # (Auto) 0.1 K/mm3 (0.0-0.1); Basophils % (Auto) 0.5 % (0.0-1.8); Eosinophils % (Auto) 0.2 % (0.0-4.3); Hematocrit 29.2 % (30.3-42.9); Hemoglobin 9.3 gm/dl (10.1-14.3); Lymphocytes # (Auto) 2.3 K/mm3 (1.2-5.4); Lymphocytes % (Auto) 14.9 % (13.4-35.0); Mean Corpuscular HGB Conc 32 % (30-34); Mean Corpuscular Volume 89 fl (79-97); Monocytes # (Auto) 1.9 K/mm3 (0.0-0.8); Platelet Count 545 K/mm3 (140-440); Red Blood Count 3.29 M/mm3 (3.65-5.03)
[2022-05-12 01:51] LABS: Red Cell Distribution Width 23.8 % (13.2-15.2)
[2022-05-12 01:55] LABS: Partial Thromboplastin Time 34.9 Sec. (24.2-36.6)
[2022-05-12 02:11] LABS: Alanine Aminotransferase 7 units/L (7-56); Albumin 1.8 g/dL (3.9-5); Blood Urea Nitrogen 12 mg/dL (7-17); Hemolysis Index 26
[2022-05-12 02:22] LABS: BUN/Creatinine Ratio 20
--- NOTE | 2022-05-12 02:23 | Cat Scan Report ---
CT HEAD WITHOUT CONTRAST INDICATION / CLINICAL INFORMATION: Fall with a hematoma, Dementia. TECHNIQUE: All CT scans at this location are performed using CT dose reduction for ALARA by means of automated exposure control. COMPARISON: 06/24/2021 FINDINGS: HEMORRHAGE: None. EXTRA-AXIAL SPACES: Moderately prominent likely related to cortical atrophy. VENTRICULAR SYSTEM: Moderately enlarged likely related to central atrophy. CEREBRAL PARENCHYMA: There are periventricular hypodensities consistent with microvascular ischemic c hange. No acute territorial infarct. MIDLINE SHIFT / HERNIATION: None. CEREBELLUM / BRAINSTEM: No significant abnormality. ORBITS: Normal as visualized SOFT TISSUES: There is a scalp hematoma overlying the left frontal bone. SKULL: No significant abnormality. PARANASAL SINUSES / MASTOID AIR CELLS: Normal as visualized ADDITIONAL FINDINGS: None. IMPRESSION: 1. No acute intracranial abnormality in the setting of senescent changes. 2. Scalp hematoma overlying the left frontal bone.. Signer Name: Patrick Albert DO Signed: 05/12/2022 2:19 AM Workstation Name: [id number]
--- NOTE | 2022-05-12 02:25 | Cat Scan Report ---
CT CERVICAL SPINE WITHOUT CONTRAST INDICATION / CLINICAL INFORMATION: Fall with a hematoma, Dementia. TECHNIQUE: Axial CT images were obtained through the cervical spine. Sagittal and coronal reformatted images were produced. All CT scans at this location are performed using CT dose reduction for ALARA by means of automated exposure control. COMPARISON: None available. FINDINGS: VERTEBRAE: No acute fracture. There is sequela of prior trauma to the C7 spinous process. ALIGNMENT: No significant abnormality. DISC SPACES: Severe degenerative disc disease throughout the cervical spine. FACET JOINTS: Severe degenerative facet disease throughout the cervical spine. CRANIOCERVICAL JUNCTION:No significant abnormality. SPINAL CANAL: No significant abnormality. PARASPINAL SOFT TISSUES: No significant abnormality. ADDITIONAL FINDINGS: None. LUNG APICES: Incidentally noted apparent right subclavian artery, otherwise no significant abnormalit y of visualized lungs. IMPRESSION: 1. No acute fracture or static subluxation of the cervical spine. 2. Severe degenerative disc and facet disease of the cervical spine. Signer Name: Patrick Albert DO Signed: 05/12/2022 2:21 AM Workstation Name: [id number]
[2022-05-12 04:25] LABS: Bilirubin,Urine NEG (Negative); Blood,Urine MOD (Negative); Color,Urine Yellow (Yellow); Protein,Urine <15 mg/dL mg/dL (Negative); Urobilinogen,Urine < 2.0 mg/dL (<2.0)
[2022-05-12 04:30] LABS: Bacteria,Urine 2+ /HPF (Negative); Mucus,Urine FEW /HPF
[2022-05-12 04:57] LABS: Chol/HDL Ratio 2.41 %
[2022-05-12] MEDS ORDERED: ACETAMINOPHEN 325 MG TAB PO PRN (05:25)
[2022-05-12] MEDS ORDERED: MORPHINE 4 MG/1 ML INJ IV PRN (05:25)
[2022-05-12] MEDS ORDERED: ALBUTEROL 2.5 MG/3 ML NEBU IH PRN (05:25)
[2022-05-12] MEDS ORDERED: ONDANSETRON 4 MG/2 ML INJ IV PRN (05:25)
[2022-05-12] MEDS ORDERED: MORPHINE 2 MG/1 ML INJ IV PRN (05:25)
--- NOTE | 2022-05-12 05:34 | History and Physical Report ---
History of Present Illness Date of examination: 05/12/22 Date of admission: 05/12/22 Chief complaint: Fall Scalp hematoma History of present illness: 81-year-old female with past medical history Alzheimer's disease, dementia and diabetes type 2 was brought to the emergency room after being [facility]. Fall was unwitnessed. Patient presents with left forehead hematoma. Unable to provide history of present illness due to underlying dementia. Patient noted to have mild hypotension upon arrival Patient had mild hypotension after arrival therefore additional work-up including labs and UA was obtained. CT imaging of head and cervical spine do not reveal any acute abnormality other than scalp hematoma. Patient has a leukocytosis with signs of a urinary tract infection and mild troponin elevation with normal renal function. Patient's mild hypotension responding to IV fluid bolus. Additional orders for blood culture, lactic acid, and 30 mill per KG bolus of normal saline ordered as per sepsis protocol. Repeat troponin pending. IV Rocephin ordered for UTI. Patient to be admitted to the hospitalist service for further treatment Past History Past Medical History: diabetes, hypertension, other (Dementia) Past Surgical History: No surgical history Social history: smoking Family history: hypertension Medications and Allergies Allergies Allergy/AdvReac Type Severity Reaction Status Date / Time No Known Allergies Allergy Unverified 10/29/20 14:33 Home Medications Medication Instructions Recorded Confirmed Last Taken Type Gabapentin 300 mg PO TID 10/29/20 10/29/20 Unknown History Metformin HCl 1,000 mg PO BID 10/29/20 10/29/20 Unknown History Norvasc 2.5 mg PO DAILY 10/29/20 10/29/20 Unknown History Omeprazole 20 mg PO DAILY 10/29/20 10/29/20 Unknown History Tramadol HCl 50 mg PO Q6HR PRN 10/29/20 10/29/20 Unknown History Trulicity 0.75 mg SUB-Q QWEEK 10/29/20 10/29/[address] 125 mg PO DAILY #30 11/02/[address] 250 mg PO HS #30 11/02/20 Unknown Rx Sertraline HCl 75 mg PO DAILY #30 11/02/20 Unknown Rx risperiDONE [RisperDAL] 0.25 mg PO BID #60 tablet 11/02/20 Unknown Rx traMADoL [Ultram 50 MG tab] 50 mg PO Q6H PRN tablet 11/02/20 Unknown Rx Active Meds: Active Medications Acetaminophen (Acetaminophen 325 Mg Tab) 650 mg PO Q4H PRN PRN Reason: Pain MILD(1-3)/Fever >100.5/[place] Albuterol (Albuterol 2.5 Mg/3 Ml Nebu) 2.5 mg IH Q3HRT PRN PRN Reason: Shortness Of Breath Albuterol/Ipratropium (Ipratropium/Albuterol Sulfate 3 Ml Ampul.Neb) 1 ampul IH Q6HRT DIVYA Famotidine (Famotidine 20 Mg/2 Ml Inj) 20 mg IV BID DIVYA Sodium Chloride (Nacl 0.9% 1000 Ml) 1,000 mls @ 125 mls/hr IV DIRECT DIVYA Miscellaneous Medication (Depakote Dr) 125 mg PO DAILY DIVYA Miscellaneous Medication (Norvasc) 2.5 mg PO DAILY DIVYA Miscellaneous Medication (Sertraline Hcl) 75 mg PO DAILY DIVYA Morphine Sulfate (Morphine 2 Mg/1 Ml Inj) 2 mg IV Q4H PRN PRN Reason: Pain, Moderate (4-6) Morphine Sulfate (Morphine 4 Mg/1 Ml Inj) 4 mg IV Q4H PRN PRN Reason: Pain , Severe (7-10) Ondansetron HCl (Ondansetron 4 Mg/2 Ml Inj) 4 mg IV Q8H PRN PRN Reason: Nausea And Vomiting Risperidone (Risperidone 0.25 Mg Tab) 0.25 mg PO BID DIVYA Sodium Chloride (Sodium Chloride 0.9% 10 Ml Flush Syringe) 10 ml IV BID DIVYA Sodium Chloride (Sodium Chloride 0.9% 10 Ml Flush Syringe) 10 ml IV PRN PRN PRN Reason: LINE FLUSH Review of Systems All systems: negative Constitutional: fatigue, malaise, lethargy, other (Fall) Exam - Constitutional Vitals: Temp Pulse Resp BP Pulse Ox 98.4 F 94 H 19 106/57 98 05/12/22 01:15 05/12/22 04:00 05/12/22 04:00 05/12/22 04:00 05/12/22 03:30 General appearance: Present: no acute distress, well-nourished - EENT Eyes: Present: PERRL ENT: hearing intact, clear oral mucosa, other (Left scalp hematoma) - Neck Neck: Present: supple, normal ROM - Respiratory Respiratory effort: normal Respiratory: bilateral: CTA - Cardiovascular Heart Sounds: Present: S1 & S2. Absent: rub, click - Extremities Extremities: pulses symmetrical, No edema Peripheral Pulses: within normal limits - Abdominal General gastrointestinal: Present: soft, non-tender, non-distended, normal bowel sounds Female genitourinary: Present: normal - Integumentary Integumentary: Present: clear, warm, dry - Musculoskeletal Musculoskeletal: gait normal, strength equal bilaterally - Psychiatric Psychiatric: appropriate mood/affect, intact judgment & insight - Neurologic Neurologic: CNII-XII intact, moves all extremities HEART Score - HEART Score Troponin: Troponin T 0.161 ng/mL (0.00-0.029) H* 05/12/22 02:18 Results - Labs CBC & Chem 7: 05/12/22 01:24 05/12/22 01:24 Labs: Laboratory Last Values WBC 15.6 K/mm3 (4.5-11.0) H 05/12/22 01:24 RBC 3.29 M/mm3 (3.65-5.03) L 05/12/22 01:24 Hgb 9.3 gm/dl (10.1-14.3) L 05/12/22 01:24 Hct 29.2 % (30.3-42.9) L 05/12/22 01:24 MCV 89 fl (79-97) 05/12/22 01:24 MCH 28 pg (28-32) 05/12/22 01:24 MCHC 32 % (30-34) 05/12/22 01:24 RDW 23.8 % (13.2-15.2) H 05/12/22 01:24 Plt Count 545 K/mm3 (140-440) H 05/12/22 01:24 Lymph % (Auto) 14.9 % (13.4-35.0) 05/12/22 01:24 [place] % (Auto) 12.0 % (0.0-7.3) H 05/12/22 01:24 Eos % (Auto) 0.2 % (0.0-4.3) 05/12/22 01:24 Baso % (Auto) 0.5 % (0.0-1.8) 05/12/22 01:24 Lymph # (Auto) 2.3 K/mm3 (1.2-5.4) 05/12/22 01:24 [place] # (Auto) 1.9 K/mm3 (0.0-0.8) H 05/12/22 01:24 Eos # (Auto) 0.0 K/mm3 (0.0-0.4) 05/12/22 01:24 Baso # (Auto) 0.1 K/mm3 (0.0-0.1) 05/12/22 01:24 Seg Neutrophils % 72.4 % (40.0-70.0) H 05/12/22 01:24 Seg Neutrophils # 11.3 K/mm3 (1.8-7.7) H 05/12/22 01:24 PT 14.6 Sec. (12.2-14.9) 05/12/22 01:24 INR 1.00 (0.87-1.13) 05/12/22 01:24 APTT 34.9 Sec. (24.2-36.6) 05/12/22 01:24 Sodium 139 mmol/L (137-145) 05/12/22 01:24 Potassium 4.4 mmol/L (3.6-5.0) 05/12/22 01:24 Chloride 106.5 mmol/L (98-107) 05/12/22 01:24 Carbon Dioxide 21 mmol/L (22-30) L 05/12/22 01:24 Anion Gap 16 mmol/L 05/12/22 01:24 BUN 12 mg/dL (7-17) 05/12/22 01:24 Creatinine 0.6 mg/dL (0.6-1.2) 05/12/22 01:24 Estimated GFR > 60 ml/min 05/12/22 01:24 BUN/Creatinine Ratio 20 % 05/12/22 01:24 Glucose 145 mg/dL (65-100) H 05/12/22 01:24 Calcium 9.0 mg/dL (8.4-10.2) 05/12/22 01:24 Total Bilirubin < 0.20 mg/dL (0.1-1.2) 05/12/22 01:24 AST 18 units/L (5-40) 05/12/22 01:24 ALT 7 units/L (7-56) 05/12/22 01:24 Alkaline Phosphatase 131 units/L (35-129) H 05/12/22 01:24 Troponin T 0.161 ng/mL (0.00-0.029) H* 05/12/22 02:18 Total Protein 6.4 g/dL (6.3-8.2) 05/12/22 01:24 Albumin 1.8 g/dL (3.9-5) L 05/12/22 01:24 Albumin/Globulin Ratio 0.4 % 05/12/22 01:24 Triglycerides 92 mg/dL (2-149) 05/12/22 02:18 Cholesterol 116 mg/dL (50-199) 05/12/22 02:18 LDL Cholesterol Direct 36 mg/dL (50-130) L 05/12/22 02:18 HDL Cholesterol 48 mg/dL (40-59) 05/12/22 02:18 Cholesterol/HDL Ratio 2.41 % 05/12/22 02:18 Urine Color Yellow (Yellow) 05/12/22 Unknown Urine Turbidity Slightly-cloudy (Clear) 05/12/22 Unknown Urine pH 6.0 (5.0-7.0) 05/12/22 Unknown Ur Specific [place] 1.016 (1.003-1.030) 05/12/22 Unknown Urine Protein <15 mg/dl mg/dL (Negative) 05/12/22 Unknown Urine Glucose (UA) Neg mg/dL (Negative) 05/12/22 Unknown Urine Ketones Neg mg/dL (Negative) 05/12/22 Unknown Urine Blood Mod (Negative) 05/12/22 Unknown Urine Nitrite Neg (Negative) 05/12/22 Unknown Urine Bilirubin Neg (Negative) 05/12/22 Unknown Urine Urobilinogen < 2.0 mg/dL (<2.0) 05/12/22 Unknown Ur Leukocyte Esterase Lg (Negative) 05/12/22 Unknown Urine WBC (Auto) 35.0 /HPF (0.0-6.0) H 05/12/22 Unknown Urine RBC (Auto) 4.0 /HPF (0.0-6.0) 05/12/22 Unknown U Epithel Cells (Auto) 7.0 /HPF (0-13.0) 05/12/22 Unknown Urine Bacteria (Auto) 2+ /HPF (Negative) 05/12/22 Unknown Urine Mucus Few /HPF 05/12/22 Unknown Urine Yeast (Budding) 2+ /HPF 05/12/22 Unknown - Imaging and Cardiology CT Scan - head: report reviewed Assessment and Plan VTE prophylaxis?: Mechanical Plan of care discussed with patient/family: Yes - Patient Problems (1) Scalp hematoma Current Visit: Yes Status: Acute Plan to address problem: Admit the patient to the [facility] overnight. Patient is on fall precaution. Normal saline at the rate of 100 cc/h. We will monitor the patient closely. Physical therapy evaluation. Recheck CBC BMP in the morning (2) Elevated troponin Current Visit: Yes Status: Acute Plan to address problem: Lipitor 40 mg p.o. daily. We will do the serial cardiac enzymes. Echocardiogram. Cardiology evaluation. We will hold the aspirin because of scalp hematoma (3) Dementia Current Visit: Yes Status: Acute Plan to address problem: Stable. We will continue the home medication (4) Fall Current Visit: Yes Status: Acute Plan to address problem: Patient is on fall precaution. Will consult physical therapy for evaluation. We will monitor the patient closely (5) Hypotension Current Visit: Yes Status: Acute Plan to address problem: Patient already get 30 cc/kg fluid bolus. We will put the patient on normal saline at the rate of 100 cc/h. We will monitor the patient closely (6) UTI (urinary tract infection) Current Visit: Yes Status: Acute Plan to address problem: Rocephin 2 g IV daily. We do the blood culture urine culture (7) Diabetes mellitus Current Visit: No Status: Acute Plan to address problem: Accu-Chek every 6 hours with Humalog moderate dose coverage. Diabetic education (8) DVT prophylaxis Current Visit: Yes Status: Acute Plan to address problem: SCD for DVT prophylaxis. Pepcid 20 mg IV every 12 hours for GI prophylaxis. Patient is a full code
[2022-05-12] MEDS: SODIUM CHLORIDE 0.9% 1000 ML IV SOLN IV ONE ×2 (05:35→06:10)
[2022-05-12] MEDS: cefTRIAXone/NS 1 GM/50 ML 1 GM/50 ML BAG IV ONE ×2 (05:35→06:10)
[2022-05-12] MEDS: SODIUM CHLORIDE 0.9% 1000 ML 1,000 ML IV SCH ×2 (06:42→22:59)
[2022-05-12] MEDS ORDERED: LACTATED RINGERS 1,000 ML IV ONE (07:52)
[2022-05-12] MEDS ORDERED: IPRATROPIUM/ALBUTEROL SULFATE 3 ML AMPUL.NEB IH SCH (08:00)
--- NOTE | 2022-05-12 08:00 | Progress Note ---
Assessment and Plan Assessment and plan: Assessment and plan #Septic Shock POA #Urinary tract infection # Decubitus ulcer - leukocytes on admission - hypotensive, bolus admin x 3 today. No pressors required yet - PICC line ordered - carmona for accurate I/O. - OK with MAP > 65 - blood cx, urine cx - covid rt pcr - trend fever curve/wbc - empiric abx with vancomcin and cefepime. - IVF - reports of recent c.diff infection treated at [place]. #Unwitnessed fall - ct imaging negative for acute intracranial bleed/pathology. - PT/OT #Scalp hematoma - noted, no acute findings on ct head/no fracture on ct c spine. - avoid ac at this time, dvt ppx with scd. #Type II NM Elevated troponin on admission, likely supply demand from sepsis Cardiology was consulted on admission #Dementia - AOx 2 only. # Nicotine Abuse. - behavioral health counseling administered which included education on benefits of smoking cessation as well as options for quitting. +15 min. #Advance care planning Disease education conducted, care plan discussed, diagnoses discussed, prognosis discussed, patient is full code, patient acknowledges understanding and agree with care plan, +30 minutes. Dispo: IMCU. Tx as UTI vs soft tissue skin infection from sacral decubitus ulcer. Anticipate 2-3 hosp day stay. Plan is to return back to [facility]. The high probability of a clinically significant, sudden or life threatening deterioration of the [multi] system(s) required my full and direct attention, intervention and personal management. The aggregate critical care time was [60] minutes. This time is in addition to time spent performing reported procedures but includes the following: [x] Data Review and interpretation [x] Patient assessment and monitoring of vital signs [x] Documentation [x] Medication orders and management History Interval history: Confused, only oriented x 2. Patient lethargic on my encounter. BP noted to be 90's/60's, however MAP > 65. Advised RN to bolus patient. Hospitalist Physical - Physical exam Narrative exam: Physical Exam: VITAL SIGNS: Reviewed. GENERAL: The patient appears normally developed, Vital signs as documented. dementia. lethargic HEAD: hematoma on scalp. No signs of head trauma. EYES: Pupils are equal. Extraocular motions intact. EARS: Hearing grossly intact. MOUTH: Oropharynx is normal. NECK: No adenopathy, no JVD. CHEST: Chest with clear breath sounds bilaterally. No wheezes, rales, or rhonchi. CARDIAC: Regular rate and rhythm. S1 and S2, without murmurs, gallops, or rubs. VASCULAR: No Edema. Peripheral pulses normal and equal in all extremities. ABDOMEN: Soft, non tender and non distended. No rebound or guarding, and no masses palpated. Bowel Sounds normal. MUSCULOSKELETAL: Good range of motion of all major joints. Extremities without clubbing, cyanosis or edema. NEUROLOGIC EXAM: Alert and oriented x 2. no focal sensory or strength deficits. PSYCHIATRIC: dementia, confused SKIN: sacral decubitus ulcer, please refer to detail exam as documented in RN skin assessment - Constitutional Vitals: Temp Pulse Resp BP Pulse Ox 98.4 F 95 H 9 L 104/31 100 05/12/22 01:15 05/12/22 06:00 05/12/22 06:00 05/12/22 06:00 05/12/22 06:00 General appearance: Present: no acute distress, well-nourished HEART Score - HEART Score Troponin: Troponin T 0.143 ng/mL (0.00-0.029) H* 05/12/22 05:23 Results - Labs CBC & Chem 7: 05/12/22 01:24 05/12/22 01:24 Labs: Laboratory Last Values WBC 15.6 K/mm3 (4.5-11.0) H 05/12/22 01:24 RBC 3.29 M/mm3 (3.65-5.03) L 05/12/22 01:24 Hgb 9.3 gm/dl (10.1-14.3) L 05/12/22 01:24 Hct 29.2 % (30.3-42.9) L 05/12/22 01:24 MCV 89 fl (79-97) 05/12/22 01:24 MCH 28 pg (28-32) 05/12/22 01:24 MCHC 32 % (30-34) 05/12/22 01:24 RDW 23.8 % (13.2-15.2) H 05/12/22 01:24 Plt Count 545 K/mm3 (140-440) H 05/12/22 01:24 Lymph % (Auto) 14.9 % (13.4-35.0) 05/12/22 01:24 [place] % (Auto) 12.0 % (0.0-7.3) H 05/12/22 01:24 Eos % (Auto) 0.2 % (0.0-4.3) 05/12/22 01:24 Baso % (Auto) 0.5 % (0.0-1.8) 05/12/22 01:24 Lymph # (Auto) 2.3 K/mm3 (1.2-5.4) 05/12/22 01:24 [place] # (Auto) 1.9 K/mm3 (0.0-0.8) H 05/12/22 01:24 Eos # (Auto) 0.0 K/mm3 (0.0-0.4) 05/12/22 01:24 Baso # (Auto) 0.1 K/mm3 (0.0-0.1) 05/12/22 01:24 Seg Neutrophils % 72.4 % (40.0-70.0) H 05/12/22 01:24 Seg Neutrophils # 11.3 K/mm3 (1.8-7.7) H 05/12/22 01:24 PT 14.6 Sec. (12.2-14.9) 05/12/22 01:24 INR 1.00 (0.87-1.13) 05/12/22 01:24 APTT 34.9 Sec. (24.2-36.6) 05/12/22 01:24 Sodium 139 mmol/L (137-145) 05/12/22 01:24 Potassium 4.4 mmol/L (3.6-5.0) 05/12/22 01:24 Chloride 106.5 mmol/L (98-107) 05/12/22 01:24 Carbon Dioxide 21 mmol/L (22-30) L 05/12/22 01:24 Anion Gap 16 mmol/L 05/12/22 01:24 BUN 12 mg/dL (7-17) 05/12/22 01:24 Creatinine 0.6 mg/dL (0.6-1.2) 05/12/22 01:24 Estimated GFR > 60 ml/min 05/12/22 01:24 BUN/Creatinine Ratio 20 % 05/12/22 01:24 Glucose 145 mg/dL (65-100) H 05/12/22 01:24 Lactic Acid 1.30 mmol/L (0.7-2.0) 05/12/22 05:23 Calcium 9.0 mg/dL (8.4-10.2) 05/12/22 01:24 Total Bilirubin < 0.20 mg/dL (0.1-1.2) 05/12/22 01:24 AST 18 units/L (5-40) 05/12/22 01:24 ALT 7 units/L (7-56) 05/12/22 01:24 Alkaline Phosphatase 131 units/L (35-129) H 05/12/22 01:24 Troponin T 0.143 ng/mL (0.00-0.029) H* 05/12/22 05:23 Total Protein 6.4 g/dL (6.3-8.2) 05/12/22 01:24 Albumin 1.8 g/dL (3.9-5) L 05/12/22 01:24 Albumin/Globulin Ratio 0.4 % 05/12/22 01:24 Triglycerides 92 mg/dL (2-149) 05/12/22 02:18 Cholesterol 116 mg/dL (50-199) 05/12/22 02:18 LDL Cholesterol Direct 36 mg/dL (50-130) L 05/12/22 02:18 HDL Cholesterol 48 mg/dL (40-59) 05/12/22 02:18 Cholesterol/HDL Ratio 2.41 % 05/12/22 02:18 Urine Color Yellow (Yellow) 05/12/22 Unknown Urine Turbidity Slightly-cloudy (Clear) 05/12/22 Unknown Urine pH 6.0 (5.0-7.0) 05/12/22 Unknown Ur Specific [place] 1.016 (1.003-1.030) 05/12/22 Unknown Urine Protein <15 mg/dl mg/dL (Negative) 05/12/22 Unknown Urine Glucose (UA) Neg mg/dL (Negative) 05/12/22 Unknown Urine Ketones Neg mg/dL (Negative) 05/12/22 Unknown Urine Blood Mod (Negative) 05/12/22 Unknown Urine Nitrite Neg (Negative) 05/12/22 Unknown Urine Bilirubin Neg (Negative) 05/12/22 Unknown Urine Urobilinogen < 2.0 mg/dL (<2.0) 05/12/22 Unknown Ur Leukocyte Esterase Lg (Negative) 05/12/22 Unknown Urine WBC (Auto) 35.0 /HPF (0.0-6.0) H 05/12/22 Unknown Urine RBC (Auto) 4.0 /HPF (0.0-6.0) 05/12/22 Unknown U Epithel Cells (Auto) 7.0 /HPF (0-13.0) 05/12/22 Unknown Urine Bacteria (Auto) 2+ /HPF (Negative) 05/12/22 Unknown Urine Mucus Few /HPF 05/12/22 Unknown Urine Yeast (Budding) 2+ /HPF 05/12/22 Unknown Active Medications - Current Medications Current Medications: Generic Name Dose Route Start Last Admin Trade Name Freq PRN Reason Stop Dose Admin Acetaminophen 650 mg 05/12/22 05:25 Acetaminophen 325 Mg Tab PO Q4H PRN Pain MILD(1-3)/Fever >100.5/[place] Albuterol 2.5 mg 05/12/22 05:25 Albuterol 2.5 Mg/3 Ml Nebu IH Q3HRT PRN Shortness Of Breath Albuterol/Ipratropium 1 ampul 05/12/22 08:00 Ipratropium/Albuterol Sulfate 3 Ml Ampul.Neb IH Q6HRT DIVYA Amlodipine Besylate 2.5 mg 05/12/22 10:00 Amlodipine 5 Mg Tab PO DAILY [facility] Atorvastatin Calcium 40 mg 05/12/22 22:00 Atorvastatin 40 Mg Tab PO QHS [facility] Dextrose 0 ml 05/12/22 05:28 Dextrose 50% In Water (25gm) 50 Ml Syringe IV Q30MIN PRN Hypoglycemia Protocol Divalproex Sodium 125 mg 05/12/22 10:00 Divalproex Sprinkle 125 Mg Cap PO DAILY [facility] Famotidine 20 mg 05/12/22 10:00 Famotidine 20 Mg/2 Ml Inj IV BID DIVYA Sodium Chloride 1,000 mls @ 125 mls/hr 05/12/22 05:30 05/12/22 06:42 Nacl 0.9% 1000 Ml IV 125 mls/hr DIRECT DIVYA Administration Ceftriaxone Sodium 2 gm in 100 mls @ 200 mls/hr 05/13/22 06:00 Rocephin/Ns 2 Gm/100 Ml IV Q24H [facility]YA Protocol Lactated Ringer's 1,000 mls @ 999 mls/hr 05/12/22 07:52 Lactated Ringers IV 05/12/22 08:52 BOLUS ONE Insulin Human Lispro 0 unit 05/12/22 07:30 Insulin Lispro 100 Unit/Ml SUB-Q ACHS [facility] Protocol Morphine Sulfate 2 mg 05/12/22 05:25 Morphine 2 Mg/1 Ml Inj IV Q4H PRN Pain, Moderate (4-6) Morphine Sulfate 4 mg 05/12/22 05:25 Morphine 4 Mg/1 Ml Inj IV Q4H PRN Pain , Severe (7-10) Ondansetron HCl 4 mg 05/12/22 05:25 Ondansetron 4 Mg/2 Ml Inj IV Q8H PRN Nausea And Vomiting Risperidone 0.25 mg 05/12/22 10:00 Risperidone 0.25 Mg Tab PO BID [facility] Sertraline HCl 25 mg 05/12/22 10:00 Sertraline 25 Mg Tab PO DAILY [facility] Sertraline HCl 50 mg 05/12/22 10:00 Sertraline 50 Mg Tab PO QDAY [facility] Sodium Chloride 10 ml 05/12/22 10:00 Sodium Chloride 0.9% 10 Ml Flush Syringe IV BID DIVYA Sodium Chloride 10 ml 05/12/22 05:25 Sodium Chloride 0.9% 10 Ml Flush Syringe IV PRN PRN LINE FLUSH
[2022-05-12] MEDS: INSULIN LISPRO 100 UNIT/ML SUB-Q SCH ×4 (08:05→22:53)
[2022-05-12] MEDS ORDERED: amLODIPine 5 MG TAB PO SCH (10:00)
[2022-05-12] MEDS: SERTRALINE 25 MG TAB PO SCH (10:22)
[2022-05-12] MEDS: SERTRALINE 50 MG TAB PO SCH (10:22)
[2022-05-12] MEDS: DIVALPROEX SPRINKLE 125 MG CAP PO SCH (10:22)
[2022-05-12] MEDS: FAMOTIDINE 20 MG/2 ML INJ IV SCH ×2 (10:22→22:57)
[2022-05-12] MEDS: risperiDONE 0.25 MG TAB PO SCH ×2 (10:22→22:53)
--- NOTE | 2022-05-12 10:39 | Electrocardiograph Report ---
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 Low voltage, extremity leads No previous ECG available for comparison Electronically Signed On 05-12-2022 10:38:40 EDT by Jose Elias Louie
--- NOTE | 2022-05-12 12:35 | Consultation ---
History of Present Illness Consult date: 05/12/22 Requesting physician: LIZETTE CHRIS Consult reason: elevated troponin History of present illness: Patient is an 81-year-old female with a past medical history of dementia and diabetes who was brought to the ED after being found on the floor at her half-way. History is taken from chart due to patient's mental status and underlying dementia. Per documentation patient's fall was unwitnessed. In the ED patient was found to have mild hypotension, and left forehead hematoma. CT head and neck show no other acute abnormality. Patient was also found to have leukocytosis, suspected UTI, and elevated troponins. Of note patient was discharged from [facility] at the end of March due to sepsis. Patient is previously unknown to our practice. Cardiology is consulted for elevated troponins. Past History Past Medical History: diabetes, hypertension, other (Dementia) Past Surgical History: No surgical history Social history: smoking Family history: hypertension Medications and Allergies Allergies Allergy/AdvReac Type Severity Reaction Status Date / Time No Known Allergies Allergy Unverified 10/29/20 14:33 Home Medications Medication Instructions Recorded Confirmed Last Taken Type Gabapentin 300 mg PO TID 10/29/20 10/29/20 Unknown History Metformin HCl 1,000 mg PO BID 10/29/20 10/29/20 Unknown History Norvasc 2.5 mg PO DAILY 10/29/20 10/29/20 Unknown History Omeprazole 20 mg PO DAILY 10/29/20 10/29/20 Unknown History Tramadol HCl 50 mg PO Q6HR PRN 10/29/20 10/29/20 Unknown History Trulicity 0.75 mg SUB-Q QWEEK 10/29/20 10/29/[address] 125 mg PO DAILY #30 11/02/[address] 250 mg PO HS #30 11/02/20 Unknown Rx Sertraline HCl 75 mg PO DAILY #30 11/02/20 Unknown Rx risperiDONE [RisperDAL] 0.25 mg PO BID #60 tablet 11/02/20 Unknown Rx traMADoL [Ultram 50 MG tab] 50 mg PO Q6H PRN tablet 11/02/20 Unknown Rx Active Meds: Active Medications Acetaminophen (Acetaminophen 325 Mg Tab) 650 mg PO Q4H PRN PRN Reason: Pain MILD(1-3)/Fever >100.5/[place] Albuterol (Albuterol 2.5 Mg/3 Ml Nebu) 2.5 mg IH Q3HRT PRN PRN Reason: Shortness Of Breath Albuterol/Ipratropium (Ipratropium/Albuterol Sulfate 3 Ml Ampul.Neb) 1 ampul IH Q6HRT [facility] Amlodipine Besylate (Amlodipine 5 Mg Tab) 2.5 mg PO DAILY [facility] Last Admin: 05/12/22 10:21 Dose: Not Given Atorvastatin Calcium (Atorvastatin 40 Mg Tab) 40 mg PO QHS [facility] Dextrose (Dextrose 50% In Water (25gm) 50 Ml Syringe) 0 ml IV Q30MIN PRN; Protocol PRN Reason: Hypoglycemia Divalproex Sodium (Divalproex Sprinkle 125 Mg Cap) 125 mg PO DAILY [facility] Last Admin: 05/12/22 10:22 Dose: Not Given Famotidine (Famotidine 20 Mg/2 Ml Inj) 20 mg IV BID [facility] Last Admin: 05/12/22 10:22 Dose: Not Given Sodium Chloride (Nacl 0.9% 1000 Ml) 1,000 mls @ 125 mls/hr IV DIRECT [facility] Last Admin: 05/12/22 06:42 Dose: 125 mls/hr Ceftriaxone Sodium (Rocephin/Ns 2 Gm/100 Ml) 2 gm in 100 mls @ 200 mls/hr IV Q24H [facility]; Protocol Sodium Chloride (Nacl 0.9% 1000 Ml) 1,000 mls @ 999 mls/hr IV BOLUS ONE Stop: 05/12/22 13:16 Last Admin: 05/12/22 12:18 Dose: 999 mls/hr Insulin Human Lispro (Insulin Lispro 100 Unit/Ml) 0 unit SUB-Q ACHS [facility]; Protocol Last Admin: 05/12/22 11:31 Dose: Not Given Morphine Sulfate (Morphine 2 Mg/1 Ml Inj) 2 mg IV Q4H PRN PRN Reason: Pain, Moderate (4-6) Morphine Sulfate (Morphine 4 Mg/1 Ml Inj) 4 mg IV Q4H PRN PRN Reason: Pain , Severe (7-10) Ondansetron HCl (Ondansetron 4 Mg/2 Ml Inj) 4 mg IV Q8H PRN PRN Reason: Nausea And Vomiting Risperidone (Risperidone 0.25 Mg Tab) 0.25 mg PO BID [facility] Last Admin: 05/12/22 10:22 Dose: Not Given Sertraline HCl (Sertraline 25 Mg Tab) 25 mg PO DAILY [facility] Last Admin: 05/12/22 10:22 Dose: Not Given Sertraline HCl (Sertraline 50 Mg Tab) 50 mg PO QDAY [facility] Last Admin: 05/12/22 10:22 Dose: Not Given Sodium Chloride (Sodium Chloride 0.9% 10 Ml Flush Syringe) 10 ml IV BID [facility] Last Admin: 05/12/22 10:22 Dose: 10 ml Sodium Chloride (Sodium Chloride 0.9% 10 Ml Flush Syringe) 10 ml IV PRN PRN PRN Reason: LINE FLUSH Review of Systems ROS unobtainable: due to mental status Physical Examination Vital Signs Temp Pulse Resp BP Pulse Ox 97.2 F L 98 H 18 118/78 98 05/12/22 00:14 05/12/22 00:14 05/12/22 00:14 05/12/22 00:14 05/12/22 00:14 General appearance: other (Altered mental status) Neck: Positive: trachea midline Cardiac: Positive: Reg Rate and Rhythm Lungs: Positive: Normal Breath Sounds Neuro: Positive: Grossly Intact Abdomen: Positive: Soft Skin: Positive: Ulceration (Sacral ulcer) Extremities: Present: upper extr. pulses. Absent: edema Results 05/12/22 01:24 05/12/22 01:24 Cardiac Enzymes 05/12/22 Range/Units 01:24 AST 18 (5-40) units/L Coagulation 05/12/22 Range/Units 01:24 PT 14.6 (12.2-14.9) Sec. INR 1.00 (0.87-1.13) APTT 34.9 (24.2-36.6) Sec. Lipids 05/12/22 Range/Units 02:18 Triglycerides 92 (2-149) mg/dL Cholesterol 116 (50-199) mg/dL HDL Cholesterol 48 (40-59) mg/dL Cholesterol/HDL Ratio 2.41 % CBC 05/12/22 Range/Units 01:24 WBC 15.6 H (4.5-11.0) K/mm3 RBC 3.29 L (3.65-5.03) M/mm3 Hgb 9.3 L (10.1-14.3) gm/dl Hct 29.2 L (30.3-42.9) % Plt Count 545 H (140-440) K/mm3 Lymph # (Auto) 2.3 (1.2-5.4) K/mm3 [place] # (Auto) 1.9 H (0.0-0.8) K/mm3 Eos # (Auto) 0.0 (0.0-0.4) K/mm3 Baso # (Auto) 0.1 (0.0-0.1) K/mm3 Comprehensive Metabolic Panel 05/12/22 Range/Units 01:24 Sodium 139 (137-145) mmol/L Potassium 4.4 (3.6-5.0) mmol/L Chloride 106.5 (98-107) mmol/L Carbon Dioxide 21 L (22-30) mmol/L BUN 12 (7-17) mg/dL Creatinine 0.6 (0.6-1.2) mg/dL Glucose 145 H (65-100) mg/dL Calcium 9.0 (8.4-10.2) mg/dL AST 18 (5-40) units/L ALT 7 (7-56) units/L Alkaline Phosphatase 131 H (35-129) units/L Total Protein 6.4 (6.3-8.2) g/dL Albumin 1.8 L (3.9-5) g/dL - Imaging and Cardiology Echo: report reviewed EKG interpretations - Telemetry EKG Rhythm: Sinus Rhythm - EKG Sinus rhythms and dysrhythmias: sinus rhythm Assessment and Plan Patient is an 81-year-old female with a past medical history of dementia and diabetes who was brought to the ED after being found on the floor at her half-way. History is taken from chart due to patient's mental status and underlying dementia Altered mental status s/p fall NSTEMI suspect type II Sepsis UTI Dementia Diabetes Echo 04/05/2022- LVEF 55 - 60%. LV systolic function is normal. LV size is normal. Normal LV wall thickness. LV wall motion normal. Normal LV diastolic function. RV systolic function is normal. Mild aortic valve calcification. Aortic valve opens well. No aortic regurgitation. No hemodynamically significant aortic valve stenosis. Mitral valve mildly thickened. Trace mitral regurgitation. Mild tricuspid regurgitation. Borderline elevated RVSP, 34 mmHg. Normal mean pulmonary pressure. Pulmonic valve not well visualized. Trace pulmonary regurgitation. No echocardiographic evidence of endocarditis. If the clinical suspicion of endocarditis is high, recommend ELLEN for further evaluation. Plan: EKG shows sinus rhythm 88 low-voltage. No acute ischemic changes. Troponins noted to be elevated and downtrending. Suspect NSTEMI type 2 in setting of Sepsis and UTI Patient has recently had normal echo. Duet to patients mental status and comorbidities recommend conservative management. No indication for ischemic evaluation at this time Ok to resume statin therapy No BB, DESI/ARB due to hypotension Patient in conjunction with Dr. Louie who agrees with this plan of care - Patient Problems (1) NSTEMI (non-ST elevated myocardial infarction) Current Visit: Yes Status: Acute (2) Sepsis Current Visit: Yes Status: Acute (3) Hypertension Current Visit: No Status: Acute (4) Diabetes mellitus Current Visit: No Status: Acute (5) Dementia Current Visit: Yes Status: Acute (6) UTI (urinary tract infection) Current Visit: Yes Status: Acute (7) Hypotension Current Visit: Yes Status: Acute (8) Fall Current Visit: Yes Status: Acute (9) Scalp hematoma Current Visit: Yes Status: Acute
[2022-05-12] MEDS ORDERED: VANCOMYCIN PHARMACY TO DOSE IV SCH (16:00)
[2022-05-12] MEDS: CEFEPIME/NS 1 GM/100 ML 1 GM/100 ML BAG IV SCH ×2 (16:10→23:00)
[2022-05-12] MEDS: DEXTROSE 50% IN WATER (25GM) 50 ML SYRINGE IV PRN ×2 (16:22→19:55)
[2022-05-12] MEDS ORDERED: VANCOMYCIN 1,250 MG in SODIUM CHLORIDE 0.9% 250ML 250 ML IV ONE (18:00)
[2022-05-13] MEDS: DEXTROSE 50% IN WATER (25GM) 50 ML SYRINGE IV PRN ×2 (04:18→05:51)
[2022-05-13 05:23] LABS: Basophils % (Auto) 0.3 % (0.0-1.8); Eosinophils # (Auto) 0.1 K/mm3 (0.0-0.4); Eosinophils % (Auto) 0.5 % (0.0-4.3); Hematocrit 24.4 % (30.3-42.9); Hemoglobin 7.7 gm/dl (10.1-14.3); Lymphocytes # (Auto) 1.6 K/mm3 (1.2-5.4); Lymphocytes % (Auto) 14.2 % (13.4-35.0); Mean Corpuscular HGB Conc 32 % (30-34); Mean Corpuscular Volume 89 fl (79-97); Monocytes # (Auto) 1.1 K/mm3 (0.0-0.8); Monocytes % (Auto) 9.4 % (0.0-7.3); Platelet Count 528 K/mm3 (140-440); Red Blood Count 2.73 M/mm3 (3.65-5.03)
[2022-05-13 05:41] LABS: Blood Urea Nitrogen 7 mg/dL (7-17); Calcium 7.5 mg/dL (8.4-10.2); Hemolysis Index 1
[2022-05-13 05:48] LABS: BUN/Creatinine Ratio 23
[2022-05-13] MEDS ORDERED: cefTRIAXone/NS 2 GM/100 ML 2 GM/100 ML BAG IV SCH (06:00)
[2022-05-13] MEDS ORDERED: VANCOMYCIN/NS 1 GM/250 ML 1 GM/250 ML BAG IV SCH (06:00)
--- NOTE | 2022-05-13 08:39 | Progress Note ---
Assessment and Plan Assessment and plan: Assessment and plan #Septic Shock POA #Urinary tract infection # Decubitus ulcer - leukocytosis on admission, downtrending - hypotensive, bolus admin x 3 on 05/12. No pressors required yet. - source most likely UTI. - PICC line ordered - carmona for accurate I/O. - OK with MAP > 65 - blood cx NGTD - urine cx: GNR growing - covid rt pcr - trend fever curve/wbc - empiric abx with vancomycin and cefepime. Will likely d/c vancomycin tomorrow. - IVF - reports of recent c.diff infection treated at [place]. #Unwitnessed fall - ct imaging negative for acute intracranial bleed/pathology. - PT/OT #Scalp hematoma - noted, no acute findings on ct head/no fracture on ct c spine. - avoid ac at this time, dvt ppx with scd. #Type II VT Elevated troponin on admission, likely supply demand from sepsis Cardiology was consulted on admission #Dementia - AOx 2 only. # Nicotine Abuse. - behavioral health counseling administered which included education on benefits of smoking cessation as well as options for quitting. +15 min. #Advance care planning Disease education conducted, care plan discussed, diagnoses discussed, prognosis discussed, patient is full code, patient acknowledges understanding and agree with care plan, +30 minutes. Dispo: IMCU. Tx as UTI. Will d/c Vancomycin tomorrow if no growth on bcx. WBC trending down. Start diabetic diet. Plan is to return back to detention. The high probability of a clinically significant, sudden or life threatening deterioration of the [multi] system(s) required my full and direct attention, intervention and personal management. The aggregate critical care time was [60] minutes. This time is in addition to time spent performing reported procedures but includes the following: [x] Data Review and interpretation [x] Patient assessment and monitoring of vital signs [x] Documentation [x] Medication orders and management History Interval history: More alert today. Expressed desire to eat. Hospitalist Physical - Physical exam Narrative exam: Physical Exam: VITAL SIGNS: Reviewed. GENERAL: The patient appears normally developed, Vital signs as documented. dementia. alert HEAD: hematoma on scalp. No signs of head trauma. EYES: Pupils are equal. Extraocular motions intact. EARS: Hearing grossly intact. MOUTH: Oropharynx is normal. NECK: No adenopathy, no JVD. CHEST: Chest with clear breath sounds bilaterally. No wheezes, rales, or rhonchi. CARDIAC: Regular rate and rhythm. S1 and S2, without murmurs, gallops, or rubs. VASCULAR: No Edema. Peripheral pulses normal and equal in all extremities. ABDOMEN: Soft, non tender and non distended. No rebound or guarding, and no masses palpated. Bowel Sounds normal. MUSCULOSKELETAL: Good range of motion of all major joints. Extremities without clubbing, cyanosis or edema. NEUROLOGIC EXAM: Alert and oriented x 2. no focal sensory or strength deficits. PSYCHIATRIC: dementia, confused SKIN: sacral decubitus ulcer, please refer to detail exam as documented in RN skin assessment - Constitutional Vitals: Temp Pulse Resp BP Pulse Ox 98.1 F 97 H 12 133/59 100 05/13/22 04:03 05/13/22 07:00 05/13/22 07:00 05/13/22 07:00 05/13/22 06:00 General appearance: Present: no acute distress, well-nourished HEART Score - HEART Score Troponin: Troponin T 0.143 ng/mL (0.00-0.029) H* 05/12/22 05:23 Results - Labs CBC & Chem 7: 05/13/22 04:28 05/13/22 04:28 Labs: Laboratory Last Values WBC 11.3 K/mm3 (4.5-11.0) H 05/13/22 04:28 RBC 2.73 M/mm3 (3.65-5.03) L 05/13/22 04:28 Hgb 7.7 gm/dl (10.1-14.3) L 05/13/22 04:28 Hct 24.4 % (30.3-42.9) L 05/13/22 04:28 MCV 89 fl (79-97) 05/13/22 04:28 MCH 28 pg (28-32) 05/13/22 04:28 MCHC 32 % (30-34) 05/13/22 04:28 RDW 23.0 % (13.2-15.2) H 05/13/22 04:28 Plt Count 528 K/mm3 (140-440) H 05/13/22 04:28 Lymph % (Auto) 14.2 % (13.4-35.0) 05/13/22 04:28 Terry % (Auto) 9.4 % (0.0-7.3) H 05/13/22 04:28 Eos % (Auto) 0.5 % (0.0-4.3) 05/13/22 04:28 Baso % (Auto) 0.3 % (0.0-1.8) 05/13/22 04:28 Lymph # (Auto) 1.6 K/mm3 (1.2-5.4) 05/13/22 04:28 Terry # (Auto) 1.1 K/mm3 (0.0-0.8) H 05/13/22 04:28 Eos # (Auto) 0.1 K/mm3 (0.0-0.4) 05/13/22 04:28 Baso # (Auto) 0.0 K/mm3 (0.0-0.1) 05/13/22 04:28 Seg Neutrophils % 75.6 % (40.0-70.0) H 05/13/22 04:28 Seg Neutrophils # 8.5 K/mm3 (1.8-7.7) H 05/13/22 04:28 PT 14.6 Sec. (12.2-14.9) 05/12/22 01:24 INR 1.00 (0.87-1.13) 05/12/22 01:24 APTT 34.9 Sec. (24.2-36.6) 05/12/22 01:24 Sodium 142 mmol/L (137-145) 05/13/22 04:28 Potassium 3.0 mmol/L (3.6-5.0) L D 05/13/22 04:28 Chloride 114.6 mmol/L (98-107) H 05/13/22 04:28 Carbon Dioxide 17 mmol/L (22-30) L 05/13/22 04:28 Anion Gap 13 mmol/L 05/13/22 04:28 BUN 7 mg/dL (7-17) 05/13/22 04:28 Creatinine 0.3 mg/dL (0.6-1.2) L 05/13/22 04:28 Estimated GFR > 60 ml/min 05/13/22 04:28 BUN/Creatinine Ratio 23 % 05/13/22 04:28 Glucose 125 mg/dL (65-100) H 05/13/22 04:28 POC Glucose 83 mg/dL (70-105) 05/13/22 06:29 Lactic Acid 1.30 mmol/L (0.7-2.0) 05/12/22 09:12 Calcium 7.5 mg/dL (8.4-10.2) L D 05/13/22 04:28 Total Bilirubin < 0.20 mg/dL (0.1-1.2) 05/12/22 01:24 AST 18 units/L (5-40) 05/12/22 01:24 ALT 7 units/L (7-56) 05/12/22 01:24 Alkaline Phosphatase 131 units/L (35-129) H 05/12/22 01:24 Troponin T 0.143 ng/mL (0.00-0.029) H* 05/12/22 05:23 Total Protein 6.4 g/dL (6.3-8.2) 05/12/22 01:24 Albumin 1.8 g/dL (3.9-5) L 05/12/22 01:24 Albumin/Globulin Ratio 0.4 % 05/12/22 01:24 Triglycerides 92 mg/dL (2-149) 05/12/22 02:18 Cholesterol 116 mg/dL (50-199) 05/12/22 02:18 LDL Cholesterol Direct 36 mg/dL (50-130) L 05/12/22 02:18 HDL Cholesterol 48 mg/dL (40-59) 05/12/22 02:18 Cholesterol/HDL Ratio 2.41 % 05/12/22 02:18 Urine Color Yellow (Yellow) 05/12/22 Unknown Urine Turbidity Slightly-cloudy (Clear) 05/12/22 Unknown Urine pH 6.0 (5.0-7.0) 05/12/22 Unknown Ur Specific [place] 1.016 (1.003-1.030) 05/12/22 Unknown Urine Protein <15 mg/dl mg/dL (Negative) 05/12/22 Unknown Urine Glucose (UA) Neg mg/dL (Negative) 05/12/22 Unknown Urine Ketones Neg mg/dL (Negative) 05/12/22 Unknown Urine Blood Mod (Negative) 05/12/22 Unknown Urine Nitrite Neg (Negative) 05/12/22 Unknown Urine Bilirubin Neg (Negative) 05/12/22 Unknown Urine Urobilinogen < 2.0 mg/dL (<2.0) 05/12/22 Unknown Ur Leukocyte Esterase Lg (Negative) 05/12/22 Unknown Urine WBC (Auto) 35.0 /HPF (0.0-6.0) H 05/12/22 Unknown Urine RBC (Auto) 4.0 /HPF (0.0-6.0) 05/12/22 Unknown U Epithel Cells (Auto) 7.0 /HPF (0-13.0) 05/12/22 Unknown Urine Bacteria (Auto) 2+ /HPF (Negative) 05/12/22 Unknown Urine Mucus Few /HPF 05/12/22 Unknown Urine Yeast (Budding) 2+ /HPF 05/12/22 Unknown Microbiology: Microbiology 05/12/22 05:23 Peripheral/Venous Blood Culture - Preliminary Culture in Progress 05/12/22 05:16 Peripheral/Venous Blood Culture - Preliminary Culture in Progress [place]/IV: Voiding Method Indwelling Catheter Active Medications - Current Medications Current Medications: Generic Name Dose Route Start Last Admin Trade Name Freq PRN Reason Stop Dose Admin Acetaminophen 650 mg 05/12/22 05:25 Acetaminophen 325 Mg Tab PO Q4H PRN Pain MILD(1-3)/Fever >100.5/[place] Albuterol 2.5 mg 05/12/22 05:25 Albuterol 2.5 Mg/3 Ml Nebu IH Q3HRT PRN Shortness Of Breath Albuterol/Ipratropium 1 ampul 05/13/22 08:00 Ipratropium/Albuterol Sulfate 3 Ml Ampul.Neb IH TIDRT DIVYA Atorvastatin Calcium 40 mg 05/12/22 22:00 05/12/22 22:53 Atorvastatin 40 Mg Tab PO Not Given QHS DIVYA Dextrose 0 ml 05/12/22 05:28 05/13/22 05:51 Dextrose 50% In Water (25gm) 50 Ml Syringe IV 15 ml Q30MIN PRN Administration Hypoglycemia Protocol Divalproex Sodium 125 mg 05/12/22 10:00 05/12/22 10:22 Divalproex Sprinkle 125 Mg Cap PO Not Given DAILY DIVYA Famotidine 20 mg 05/12/22 10:00 05/12/22 22:57 Famotidine 20 Mg/2 Ml Inj IV 20 mg BID DIVYA Administration Sodium Chloride 1,000 mls @ 125 mls/hr 05/12/22 05:30 05/12/22 22:59 Nacl 0.9% 1000 Ml IV 125 mls/hr DIRECT DIVYA Administration Cefepime HCl 1 gm in 100 mls @ 200 mls/hr 05/12/22 16:00 05/12/22 23:00 Cefepime/Ns 1 Gm/100 Ml IV 200 mls/hr Q8H DIVYA Administration Protocol Vancomycin HCl 1 gm in 250 mls @ 166.667 mls/hr 05/13/22 06:00 05/13/22 05:53 Vancomycin/Ns 1 Gm/250 Ml IV 166.667 mls/hr Q12H DIVYA Administration Insulin Human Lispro 0 unit 05/12/22 07:30 05/12/22 22:53 Insulin Lispro 100 Unit/Ml SUB-Q Not Given ACHS DIVYA Protocol Morphine Sulfate 2 mg 05/12/22 05:25 Morphine 2 Mg/1 Ml Inj IV Q4H PRN Pain, Moderate (4-6) Ondansetron HCl 4 mg 05/12/22 05:25 Ondansetron 4 Mg/2 Ml Inj IV Q8H PRN Nausea And Vomiting Potassium Chloride 40 meq 05/13/22 08:38 Potassium Chloride Er 20 Meq Tab PO 05/13/22 08:39 ONCE ONE Risperidone 0.25 mg 05/12/22 10:00 05/12/22 22:53 Risperidone 0.25 Mg Tab PO Not Given BID DIVYA Sertraline HCl 25 mg 05/12/22 10:00 05/12/22 10:22 Sertraline 25 Mg Tab PO Not Given DAILY DIVYA Sertraline HCl 50 mg 05/12/22 10:00 05/12/22 10:22 Sertraline 50 Mg Tab PO Not Given QDAY DIVYA Sodium Chloride 10 ml 05/12/22 10:00 05/12/22 22:59 Sodium Chloride 0.9% 10 Ml Flush Syringe IV 10 ml BID DIVYA Administration Sodium Chloride 10 ml 05/12/22 05:25 Sodium Chloride 0.9% 10 Ml Flush Syringe IV PRN PRN LINE FLUSH Nutrition/Malnutrition Assess - Dietary Evaluation Nutrition/Malnutrition Findings: Nutrition Notes Start: 05/12/22 15:58 Freq: Status: Active Protocol: Document 05/12/22 15:58 FOX (Rec: 05/12/22 16:05 FOX [id number]) Nutrition Notes Need for Assessment generated from: MD Order,Education Initial or Follow up Brief Note Current Diagnosis Diabetes,Hypertension Other Pertinent Diagnosis UTI, Head Injury s/p Fall, Alzheimer's Disease. Current Diet NPO (since 05/12 10:25). Height 5 ft 2 in Weight 65 kg [place] Body Weight (kg) 50.00 BMI 26.2 Weight change and time frame None provided at admission. Weight Status Overweight Subjective/Other Information RD consult for nutrition education assessment. Pt currently on NPO. Pt is on Nasal Cannula, O2 saturation @ 99%, according to Vital Signs notes. Pt needs total assistance with ADL activities, not a candidate for Nutrition Education. Percent of energy/protein needs met: Pt currently on NPO. Nutrition Intervention Follow-Up By: 05/16/22 Additional Comments When pertinet, start monitoring food tolerance, %PO intake of meals, and BM.
[2022-05-13] MEDS: IPRATROPIUM/ALBUTEROL SULFATE 3 ML AMPUL.NEB IH SCH ×2 (08:58→14:53)
[2022-05-13] MEDS ORDERED: POTASSIUM CHLORIDE ER 20 MEQ TAB PO SCH (09:00)
[2022-05-13] MEDS: D5W/0.45% NACL 1,000 ML IV SCH ×2 (09:50→23:45)
[2022-05-13] MEDS: INSULIN LISPRO 100 UNIT/ML SUB-Q SCH ×4 (09:51→22:00)
[2022-05-13] MEDS: FAMOTIDINE 20 MG/2 ML INJ IV SCH ×2 (09:58→21:18)
[2022-05-13] MEDS ORDERED: VANCOMYCIN PHARMACY TO DOSE IV SCH (10:00)
[2022-05-13] MEDS: SERTRALINE 50 MG TAB PO SCH (10:01)
[2022-05-13] MEDS: risperiDONE 0.25 MG TAB PO SCH ×2 (10:04→21:18)
[2022-05-13] MEDS: SERTRALINE 25 MG TAB PO SCH (10:09)
--- NOTE | 2022-05-13 12:15 | Progress Note ---
Assessment and Plan Patient is an 81-year-old female with a past medical history of dementia and diabetes who was brought to the ED after being found on the floor at her custodial. History is taken from chart due to patient's mental status and underlying dementia Altered mental status s/p fall NSTEMI suspect type II Sepsis UTI Dementia Diabetes Echo 04/05/2022- LVEF 55 - 60%. LV systolic function is normal. LV size is normal. Normal LV wall thickness. LV wall motion normal. Normal LV diastolic function. RV systolic function is normal. Mild aortic valve calcification. Aortic valve opens well. No aortic regurgitation. No hemodynamically significant aortic valve stenosis. Mitral valve mildly thickened. Trace mitral regurg itation. Mild tricuspid regurgitation. Borderline elevated RVSP, 34 mmHg. Normal mean pulmonary pressure. Pulmonic valve not well visualized. Trace pulmonary regurgitation. No echocardiographic evidence of endocarditis. If the clinical suspicion of endocarditis is high, recommend ELLEN for further evaluation. Plan: EKG shows sinus rhythm 88 low-voltage. No acute ischemic changes. Troponins noted to be elevated and downtrending. Suspect NSTEMI type 2 in setting of Sepsis and UTI Duet to patients mental status and comorbidities recommend conservative management. No indication for ischemic evaluation at this time Continue statin No BB, DESI/ARB due to hypotension Will see as needed Patient in conjunction with Dr. Louie who agrees with this plan of care - Patient Problems (1) NSTEMI (non-ST elevated myocardial infarction) Current Visit: Yes Status: Acute (2) Sepsis Current Visit: Yes Status: Acute (3) Hypertension Current Visit: No Status: Acute (4) Diabetes mellitus Current Visit: No Status: Acute (5) Dementia Current Visit: Yes Status: Acute (6) UTI (urinary tract infection) Current Visit: Yes Status: Acute (7) Hypotension Current Visit: Yes Status: Acute (8) Fall Current Visit: Yes Status: Acute (9) Scalp hematoma Current Visit: Yes Status: Acute Subjective Date of service: 05/13/22 Principal diagnosis: Sepsis, Type 2 IA Interval history: Patient remains with altered mental status Sinus 90s to 100s Objective Vital Signs Temp Pulse Pulse Pulse Resp Resp Resp 05/13/22 08:59 112 H 05/13/22 07:00 97 H 05/13/22 06:00 97 H 05/13/22 05:00 95 H 05/13/22 04:03 98.1 F 05/13/22 04:00 95 H 10 L 05/13/22 03:00 101 H 18 05/13/22 02:00 87 10 L 05/13/22 01:20 97.9 F 05/13/22 01:00 97 H 10 L 05/13/22 00:25 98 H 05/13/22 00:02 101 H 13 05/13/22 00:00 100 H 16 05/12/22 23:52 102 H 15 05/12/22 23:46 103 H 35 H 05/12/22 23:30 102 H 28 H 05/12/22 23:16 101 H 18 05/12/22 23:00 97 H 17 05/12/22 22:46 98 H 17 05/12/22 22:30 94 H 11 L 05/12/22 22:16 94 H 14 05/12/22 22:00 91 H 13 05/12/22 21:46 91 H 12 05/12/22 21:30 94 H 14 05/12/22 21:16 93 H 12 05/12/22 21:01 91 H 18 05/12/22 21:00 96 H 12 05/12/22 20:46 93 H 13 05/12/22 20:40 16 05/12/22 20:35 91 H 05/12/22 20:31 95 H 12 05/12/22 20:30 94 H 11 L 05/12/22 20:16 92 H 14 05/12/22 20:00 99 H 22 05/12/22 19:48 98 F 05/12/22 19:00 97 H 11 L 05/12/22 18:00 99 H 24 05/12/22 17:45 97.6 F 05/12/22 14:16 90 10 L 05/12/22 14:00 90 13 05/12/22 13:46 91 H 9 L 05/12/22 13:30 90 10 L 05/12/22 13:16 92 H 11 L 05/12/22 12:30 94 H 17 BP Pulse Ox 05/13/22 08:59 05/13/22 07:00 133/59 05/13/22 06:00 136/66 100 05/13/22 05:00 136/66 100 05/13/22 04:03 05/13/22 04:00 118/64 100 05/13/22 03:00 113/53 90 05/13/22 02:00 113/53 100 05/13/22 01:20 05/13/22 01:00 115/59 100 05/13/22 00:25 05/13/22 00:02 116/59 96 05/13/22 00:00 116/59 05/12/22 23:52 100 05/12/22 23:46 121/60 99 05/12/22 23:30 98/44 100 05/12/22 23:16 98/44 100 05/12/22 23:00 98/44 100 05/12/22 22:46 98/52 100 05/12/22 22:30 98/52 100 05/12/22 22:16 98/52 100 05/12/22 22:00 98/52 100 05/12/22 21:46 115/63 100 05/12/22 21:30 115/63 100 05/12/22 21:16 115/63 100 05/12/22 21:01 05/12/22 21:00 115/63 100 05/12/22 20:46 114/60 100 05/12/22 20:40 05/12/22 20:35 05/12/22 20:31 100 05/12/22 20:30 114/60 100 05/12/22 20:16 114/60 100 05/12/22 20:00 114/60 98 05/12/22 19:48 05/12/22 19:00 98/63 100 05/12/22 18:00 05/12/22 17:45 98 05/12/22 14:16 98/40 100 05/12/22 14:00 98/40 05/12/22 13:46 99/48 05/12/22 13:30 99/48 73 L 05/12/22 13:16 108/56 05/12/22 12:30 98/44 - Physical Examination General: No Apparent Distress, Other (AMS) HEENT: Positive: PERRL Neck: Positive: trachea midline Cardiac: Positive: Reg Rate and Rhythm Lungs: Positive: Normal Breath Sounds Neuro: Positive: Grossly Intact Abdomen: Positive: Soft Skin: Positive: Ulceration (Sacral ulcer) Extremities: Present: upper extr. pulses. Absent: edema - Labs and Meds CBC 05/13/22 Range/Units 04:28 WBC 11.3 H (4.5-11.0) K/mm3 RBC 2.73 L (3.65-5.03) M/mm3 Hgb 7.7 L (10.1-14.3) gm/dl Hct 24.4 L (30.3-42.9) % Plt Count 528 H (140-440) K/mm3 Lymph # (Auto) 1.6 (1.2-5.4) K/mm3 [place] # (Auto) 1.1 H (0.0-0.8) K/mm3 Eos # (Auto) 0.1 (0.0-0.4) K/mm3 Baso # (Auto) 0.0 (0.0-0.1) K/mm3 Comprehensive Metabolic Panel 05/13/22 Range/Units 04:28 Sodium 142 (137-145) mmol/L Potassium 3.0 L D (3.6-5.0) mmol/L Chloride 114.6 H (98-107) mmol/L Carbon Dioxide 17 L (22-30) mmol/L BUN 7 (7-17) mg/dL Creatinine 0.3 L (0.6-1.2) mg/dL Glucose 125 H (65-100) mg/dL Calcium 7.5 L D (8.4-10.2) mg/dL - Imaging and Cardiology Echo: report reviewed - Telemetry EKG Rhythm: Sinus Rhythm - EKG Sinus rhythms and dysrhythmias: sinus rhythm
[2022-05-13] MEDS: DIVALPROEX SPRINKLE 125 MG CAP PO SCH (18:30)
[2022-05-13] MEDS: CEFEPIME/NS 2 GM/100 ML 2 GM/100 ML BAG IV SCH (21:18)
[2022-05-14] MEDS ORDERED: VANCOMYCIN/NS 1 GM/250 ML 1 GM/250 ML BAG IV SCH (06:00)
[2022-05-14] MEDS: IPRATROPIUM/ALBUTEROL SULFATE 3 ML AMPUL.NEB IH SCH ×4 (08:22→20:04)
--- NOTE | 2022-05-14 10:24 | Progress Note ---
Assessment and Plan Assessment and plan: Assessment and plan #Septic Shock POA #GNR Urinary tract infection # Decubitus ulcer - leukocytosis on admission, downtrending - hypotensive, bolus admin x 3 on 05/12. No pressors required yet. - source most likely UTI. - PICC line ordered - carmona for accurate I/O. - OK with MAP > 65 - blood cx NGTD - urine cx: GNR growing - covid rt pcr - trend fever curve/wbc - empiric abx with cfepim, - IVF - reports of recent c.diff infection treated at [facility]. #Hypokalemia - 2.9 - electrolyte replacement. -trend on bmp #Unwitnessed fall - ct imaging negative for acute intracranial bleed/pathology. - PT/OT #Scalp hematoma - noted, no acute findings on ct head/no fracture on ct c spine. - avoid ac at this time, dvt ppx with scd. #Type II DC Elevated troponin on admission, likely supply demand from sepsis Cardiology was consulted on admission #Dementia - AOx 2 only. # Nicotine Abuse. - behavioral health counseling administered which included education on benefits of smoking cessation as well as options for quitting. +15 min. #Advance care planning Disease education conducted, care plan discussed, diagnoses discussed, prognosis discussed, patient is full code, patient acknowledges understanding and agree with care plan, +30 minutes. Dispo: Transfer to med/surg. Tx as UTI. Will d/c Vancomycin . WBC trending down. Start diabetic diet. Plan is to return back to custodial. The high probability of a clinically significant, sudden or life threatening deterioration of the [multi] system(s) required my full and direct attention, intervention and personal management. The aggregate critical care time was [60] minutes. This time is in addition to time spent performing reported procedures but includes the following: [x] Data Review and interpretation [x] Patient assessment and monitoring of vital signs [x] Documentation [x] Medication orders and management History Interval history: NO acute complaints. resting comfortably. Hospitalist Physical - Physical exam Narrative exam: Physical Exam: VITAL SIGNS: Reviewed. GENERAL: The patient appears normally developed, Vital signs as documented. dementia. alert HEAD: hematoma on scalp. No signs of head trauma. EYES: Pupils are equal. Extraocular motions intact. EARS: Hearing grossly intact. MOUTH: Oropharynx is normal. NECK: No adenopathy, no JVD. CHEST: Chest with clear breath sounds bilaterally. No wheezes, rales, or rhonchi. CARDIAC: Regular rate and rhythm. S1 and S2, without murmurs, gallops, or rubs. VASCULAR: No Edema. Peripheral pulses normal and equal in all extremities. ABDOMEN: Soft, non tender and non distended. No rebound or guarding, and no masses palpated. Bowel Sounds normal. MUSCULOSKELETAL: Good range of motion of all major joints. Extremities without clubbing, cyanosis or edema. NEUROLOGIC EXAM: Alert and oriented x 2. no focal sensory or strength deficits. PSYCHIATRIC: dementia, confused SKIN: sacral decubitus ulcer, please refer to detail exam as documented in RN skin assessment - Constitutional Vitals: Temp Pulse Resp BP Pulse Ox 97.4 F L 104 H 9 L 110/60 99 05/14/22 08:00 05/14/22 09:00 05/14/22 09:00 05/14/22 09:00 05/14/22 09:00 General appearance: Present: no acute distress, well-nourished HEART Score - HEART Score Troponin: Troponin T 0.143 ng/mL (0.00-0.029) H* 05/12/22 05:23 Results - Labs CBC & Chem 7: 05/14/22 10:30 05/14/22 10:30 Labs: Laboratory Last Values WBC 11.3 K/mm3 (4.5-11.0) H 05/13/22 04:28 RBC 2.73 M/mm3 (3.65-5.03) L 05/13/22 04:28 Hgb 7.7 gm/dl (10.1-14.3) L 05/13/22 04:28 Hct 24.4 % (30.3-42.9) L 05/13/22 04:28 MCV 89 fl (79-97) 05/13/22 04:28 MCH 28 pg (28-32) 05/13/22 04:28 MCHC 32 % (30-34) 05/13/22 04:28 RDW 23.0 % (13.2-15.2) H 05/13/22 04:28 Plt Count 528 K/mm3 (140-440) H 05/13/22 04:28 Lymph % (Auto) 14.2 % (13.4-35.0) 05/13/22 04:28 [place] % (Auto) 9.4 % (0.0-7.3) H 05/13/22 04:28 Eos % (Auto) 0.5 % (0.0-4.3) 05/13/22 04:28 Baso % (Auto) 0.3 % (0.0-1.8) 05/13/22 04:28 Lymph # (Auto) 1.6 K/mm3 (1.2-5.4) 05/13/22 04:28 [place] # (Auto) 1.1 K/mm3 (0.0-0.8) H 05/13/22 04:28 Eos # (Auto) 0.1 K/mm3 (0.0-0.4) 05/13/22 04:28 Baso # (Auto) 0.0 K/mm3 (0.0-0.1) 05/13/22 04:28 Seg Neutrophils % 75.6 % (40.0-70.0) H 05/13/22 04:28 Seg Neutrophils # 8.5 K/mm3 (1.8-7.7) H 05/13/22 04:28 PT 14.6 Sec. (12.2-14.9) 05/12/22 01:24 INR 1.00 (0.87-1.13) 05/12/22 01:24 APTT 34.9 Sec. (24.2-36.6) 05/12/22 01:24 Sodium 142 mmol/L (137-145) 05/13/22 04:28 Potassium 3.0 mmol/L (3.6-5.0) L D 05/13/22 04:28 Chloride 114.6 mmol/L (98-107) H 05/13/22 04:28 Carbon Dioxide 17 mmol/L (22-30) L 05/13/22 04:28 Anion Gap 13 mmol/L 05/13/22 04:28 BUN 7 mg/dL (7-17) 05/13/22 04:28 Creatinine 0.3 mg/dL (0.6-1.2) L 05/13/22 04:28 Estimated GFR > 60 ml/min 05/13/22 04:28 BUN/Creatinine Ratio 23 % 05/13/22 04:28 Glucose 125 mg/dL (65-100) H 05/13/22 04:28 POC Glucose 127 mg/dL (70-105) H 05/13/22 21:11 Lactic Acid 1.30 mmol/L (0.7-2.0) 05/12/22 09:12 Calcium 7.5 mg/dL (8.4-10.2) L D 05/13/22 04:28 Total Bilirubin < 0.20 mg/dL (0.1-1.2) 05/12/22 01:24 AST 18 units/L (5-40) 05/12/22 01:24 ALT 7 units/L (7-56) 05/12/22 01:24 Alkaline Phosphatase 131 units/L (35-129) H 05/12/22 01:24 Troponin T 0.143 ng/mL (0.00-0.029) H* 05/12/22 05:23 Total Protein 6.4 g/dL (6.3-8.2) 05/12/22 01:24 Albumin 1.8 g/dL (3.9-5) L 05/12/22 01:24 Albumin/Globulin Ratio 0.4 % 05/12/22 01:24 Triglycerides 92 mg/dL (2-149) 05/12/22 02:18 Cholesterol 116 mg/dL (50-199) 05/12/22 02:18 LDL Cholesterol Direct 36 mg/dL (50-130) L 05/12/22 02:18 HDL Cholesterol 48 mg/dL (40-59) 05/12/22 02:18 Cholesterol/HDL Ratio 2.41 % 05/12/22 02:18 Urine Color Yellow (Yellow) 05/12/22 Unknown Urine Turbidity Slightly-cloudy (Clear) 05/12/22 Unknown Urine pH 6.0 (5.0-7.0) 05/12/22 Unknown Ur Specific [place] 1.016 (1.003-1.030) 05/12/22 Unknown Urine Protein <15 mg/dl mg/dL (Negative) 05/12/22 Unknown Urine Glucose (UA) Neg mg/dL (Negative) 05/12/22 Unknown Urine Ketones Neg mg/dL (Negative) 05/12/22 Unknown Urine Blood Mod (Negative) 05/12/22 Unknown Urine Nitrite Neg (Negative) 05/12/22 Unknown Urine Bilirubin Neg (Negative) 05/12/22 Unknown Urine Urobilinogen < 2.0 mg/dL (<2.0) 05/12/22 Unknown Ur Leukocyte Esterase Lg (Negative) 05/12/22 Unknown Urine WBC (Auto) 35.0 /HPF (0.0-6.0) H 05/12/22 Unknown Urine RBC (Auto) 4.0 /HPF (0.0-6.0) 05/12/22 Unknown U Epithel Cells (Auto) 7.0 /HPF (0-13.0) 05/12/22 Unknown Urine Bacteria (Auto) 2+ /HPF (Negative) 05/12/22 Unknown Urine Mucus Few /HPF 05/12/22 Unknown Urine Yeast (Budding) 2+ /HPF 05/12/22 Unknown Microbiology: Microbiology 05/12/22 Unknown Urine,Clean Catch Urine Culture - Preliminary Gram Negative Luis M 05/12/22 05:23 Peripheral/Venous Blood Culture - Preliminary NO GROWTH AFTER 24 HOURS 05/12/22 05:16 Peripheral/Venous Blood Culture - Preliminary NO GROWTH AFTER 24 HOURS [place]/IV: Voiding Method Indwelling Catheter Active Medications - Current Medications Current Medications: Generic Name Dose Route Start Last Admin Trade Name Freq PRN Reason Stop Dose Admin Acetaminophen 650 mg 05/12/22 05:25 Acetaminophen 325 Mg Tab PO Q4H PRN Pain MILD(1-3)/Fever >100.5/[place] Albuterol 2.5 mg 05/12/22 05:25 Albuterol 2.5 Mg/3 Ml Nebu IH Q3HRT PRN Shortness Of Breath Albuterol/Ipratropium 1 ampul 05/13/22 08:00 05/14/22 08:22 Ipratropium/Albuterol Sulfate 3 Ml Ampul.Neb IH 1 ampul TIDRT DIVYA Administration Atorvastatin Calcium 40 mg 05/12/22 22:00 05/13/22 21:18 Atorvastatin 40 Mg Tab PO 40 mg QHS DIVYA Administration Dextrose 0 ml 05/12/22 05:28 05/13/22 05:51 Dextrose 50% In Water (25gm) 50 Ml Syringe IV 15 ml Q30MIN PRN Administration Hypoglycemia Protocol Divalproex Sodium 125 mg 05/12/22 10:00 05/13/22 18:30 Divalproex Sprinkle 125 Mg Cap PO Not Given DAILY DIVYA Famotidine 10 mg 05/13/22 10:00 05/13/22 21:18 Famotidine 20 Mg/2 Ml Inj IV 10 mg BID DIVYA Administration Dextrose/Sodium Chloride 1,000 mls @ 75 mls/hr 05/13/22 09:00 05/13/22 23:45 D5/0.45ns IV 75 mls/hr DIRECT DIVYA Administration Cefepime HCl 2 gm in 100 mls @ 200 mls/hr 05/13/22 22:00 05/13/22 21:18 Cefepime/Ns 2 Gm/100 Ml IV 200 mls/hr Q24H DIVYA Administration Protocol Vancomycin HCl 1 gm in 250 mls @ 166.667 mls/hr 05/14/22 06:00 05/14/22 05:40 Vancomycin/Ns 1 Gm/250 Ml IV 166.667 mls/hr Q24H DIVYA Administration Insulin Human Lispro 0 unit 05/12/22 07:30 05/13/22 22:00 Insulin Lispro 100 Unit/Ml SUB-Q Not Given ACHS DIVYA Protocol Morphine Sulfate 2 mg 05/12/22 05:25 Morphine 2 Mg/1 Ml Inj IV Q4H PRN Pain, Moderate (4-6) Ondansetron HCl 4 mg 05/12/22 05:25 Ondansetron 4 Mg/2 Ml Inj IV Q8H PRN Nausea And Vomiting Risperidone 0.25 mg 05/12/22 10:00 05/13/22 21:18 Risperidone 0.25 Mg Tab PO 0.25 mg BID DIVYA Administration Sertraline HCl 25 mg 05/12/22 10:00 05/13/22 10:09 Sertraline 25 Mg Tab PO 25 mg DAILY DIVYA Administration Sertraline HCl 50 mg 05/12/22 10:00 05/13/22 10:01 Sertraline 50 Mg Tab PO 50 mg QDAY DIVYA Administration Sodium Chloride 10 ml 05/12/22 10:00 05/13/22 22:18 Sodium Chloride 0.9% 10 Ml Flush Syringe IV 10 ml BID DIVYA Administration Sodium Chloride 10 ml 05/12/22 05:25 Sodium Chloride 0.9% 10 Ml Flush Syringe IV PRN PRN LINE FLUSH Nutrition/Malnutrition Assess - Dietary Evaluation Nutrition/Malnutrition Findings: Nutrition Notes Start: 05/12/22 15:58 Freq: Status: Active Protocol: Document 05/13/22 17:50 FOX (Rec: 05/13/22 18:26 FOX [email or web address]) Nutrition Notes 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 Current Diet Consistent Carbohydrates - Ground Meats- Diet (since L ). Labs/Tests 05/13: K 3.0, Cl 114.6, CO2 17 , Crea 0.3, Glu 125, Ca 7.5. Pertinent Medications 05/13: D5/0.45ns 1000ml @ 75 ml/hr, others nutritionally unremarkable. 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 No body weight change reported in 1 day. Weight Status Overweight Subjective/Other Information RD consult for difficulty chewing and skin risk assessments. No reports available on Pt's PO intake of meals at the time , will assess at F/U. I will prescribe Ground meats modification to facilitate Pt' s PO intake, while proper DATA SERVICES DEVELOPER recommendations are placed. I strongly recommend DATA SERVICES DEVELOPER evaluation to facilitate Pt's PO intake and prevent from possible aspiration. Pt is on Nasal Cannula, O2 saturation @ 100%, according to Physical Assessment History notes. Pt has missing teeth, according to Physical Assessment History notes. Pt presents difficulty chewing and is swallow impaired, according to Physical Assessment History notes. Pt failed bedside swallow evaluation on 05/12, according to Swallow Screen notes. Pt presents Sacral Decubitus Ulcer stage IV, according to Admission Documents. Pt expressed desire to eat and is more alert today 05/13, according to Progress notes. Percent of energy/protein needs met: Prescribed Consistent Carbohydrates -Ground Meats- Diet provides for energy/ protein needs (2,061 Kcal/91 g ) during LOS. Burn Absent Trauma Present GI Symptoms None Difficulty In Swallowing,Chewing Food Allergy No Skin Integrity/Comment Sacral Decubitus Ulcer stage IV. Minimum of two criteria No Fluid Accumulation N/A Reduced [place] Sole Layer Strength N/A (non-severe) Protein-Calorie Malnutrition N\A #1 Nutrition Diagnosis Swallowing difficulty,Biting/ Chewing (masticatory) difficulty Etiology Possibly Dementia. As Evidenced by Signs and Symptoms Pt presents difficulty chewing and is swallow impaired, according to Physical Assessment History notes. Pt failed bedside swallow evaluation on 05/12, according to Swallow Screen notes. Is patient on ventilator? No Is Patient Ambulatory and/or Out of Bed No REE-([place]-St. Jeor-confined to bed) [phone] Calculation Used for Recommendations [facility] Additional Notes Protein: 1.25-1.5 g/Kg ABW; 81 -97 g/day. Fluids: 1 ml/Kcal, or as per MD. Nutrition Intervention Change Diet Order: Modify diet to Consistent Carbohydrates -Ground Meats- Diet, while DATA SERVICES DEVELOPER recommendations are available. Goal #1 Facilitate PO intake of meals with elemental, textural, or mechanical modification during LOS. Goal #2 Adjust the dietary intervention to better serve Pt's needs and clinical conditions during LOS. Follow-Up By: 05/17/22 Additional Comments Continue monitoring food tolerance, %PO intake of meals , and BM. DATA SERVICES DEVELOPER recommendations and need for ONS.
[2022-05-14 10:53] LABS: Basophils % (Auto) 0.4 % (0.0-1.8); Eosinophils # (Auto) 0.1 K/mm3 (0.0-0.4); Eosinophils % (Auto) 0.7 % (0.0-4.3); Hematocrit 24.3 % (30.3-42.9); Hemoglobin 8.1 gm/dl (10.1-14.3); Lymphocytes # (Auto) 1.3 K/mm3 (1.2-5.4); Lymphocytes % (Auto) 12.7 % (13.4-35.0); Mean Corpuscular HGB Conc 34 % (30-34); Mean Corpuscular Volume 88 fl (79-97); Monocytes % (Auto) 9.9 % (0.0-7.3); Platelet Count 505 K/mm3 (140-440); Red Blood Count 2.76 M/mm3 (3.65-5.03)
[2022-05-14 10:54] LABS: Red Cell Distribution Width 22.9 % (13.2-15.2)
[2022-05-14] MEDS: SERTRALINE 50 MG TAB PO SCH (11:00)
[2022-05-14] MEDS: SERTRALINE 25 MG TAB PO SCH (11:00)
[2022-05-14] MEDS: DIVALPROEX SPRINKLE 125 MG CAP PO SCH (11:00)
[2022-05-14] MEDS: risperiDONE 0.25 MG TAB PO SCH ×2 (11:00→22:01)
[2022-05-14] MEDS: INSULIN LISPRO 100 UNIT/ML SUB-Q SCH ×3 (11:02→22:01)
[2022-05-14 11:25] LABS: Blood Urea Nitrogen 3 mg/dL (7-17); Calcium 7.6 mg/dL (8.4-10.2); Hemolysis Index 5
[2022-05-14 11:36] LABS: BUN/Creatinine Ratio 8
[2022-05-14] MEDS: POTASSIUM CHLORIDE 10 MEQ 10 MEQ/100 ML BAG IV SCH ×4 (13:11→17:00)
[2022-05-14] MEDS ORDERED: POTASSIUM CHLORIDE 20 MEQ PACKET FEEDTUBE SCH (14:00)
[2022-05-14] MEDS: D5W/0.45% NACL 1,000 ML IV SCH (16:04)
[2022-05-14] MEDS: CEFEPIME/NS 2 GM/100 ML 2 GM/100 ML BAG IV SCH (22:00)
[2022-05-14] MEDS: FAMOTIDINE 10 MG TAB PO SCH (22:01)
[2022-05-15] MEDS: D5W/0.45% NACL 1,000 ML IV SCH ×2 (05:04→22:25)
[2022-05-15] MEDS: INSULIN LISPRO 100 UNIT/ML SUB-Q SCH ×2 (09:29→22:26)
[2022-05-15] MEDS: IPRATROPIUM/ALBUTEROL SULFATE 3 ML AMPUL.NEB IH SCH ×3 (09:40→20:29)
[2022-05-15] MEDS: FAMOTIDINE 10 MG TAB PO SCH ×2 (09:57→22:25)
[2022-05-15] MEDS: SERTRALINE 25 MG TAB PO SCH (09:58)
[2022-05-15] MEDS: risperiDONE 0.25 MG TAB PO SCH ×2 (09:58→22:24)
[2022-05-15] MEDS: SERTRALINE 50 MG TAB PO SCH (09:58)
[2022-05-15] MEDS: DIVALPROEX SPRINKLE 125 MG CAP PO SCH (09:59)
--- NOTE | 2022-05-15 10:42 | Progress Note ---
Assessment and Plan Assessment and plan: History of present illness: 81-year-old female with past medical history Alzheimer's disease, dementia and diabetes type 2 was brought to the emergency room after being found on the floor at group home. Fall was unwitnessed. Patient presents with left forehead hematoma. Unable to provide history of present illness due to underlying dementia. Patient noted to have mild hypotension upon arrival Patient had mild hypotension after arrival therefore additional work-up including labs and UA was obtained. CT imaging of head and cervical spine do not reveal any acute abnormality other than scalp hematoma. Patient has a leukocytosis with signs of a urinary tract infection and mild troponin elevation with normal renal function. Patient's mild hypotension responding to IV fluid bolus. Additional orders for blood culture, lactic acid, and 30 mill per KG bolus of normal saline ordered as per sepsis protocol. Repeat troponin pending. IV Rocephin ordered for UTI. Patient to be admitted to the hospitalist service for further treatment Hospital Course 05/15: Awaiting placement. urine Cx growing klebsiella oxytoca. Currently on Cefepime IV...will change to levaquin po. Can discharge back to [facility] once AM labs return and K is normalized. Assessment and plan #Septic Shock POA #GNR Urinary tract infection # Decubitus ulcer - leukocytosis on admission, downtrending - hypotensive, bolus admin x 3 on 05/12. No pressors required yet. - source most likely UTI. - PICC line ordered - carmona for accurate I/O. - OK with MAP > 65 - blood cx NGTD - urine cx: GNR growing - covid rt pcr - negative - trend fever curve/wbc - empiric abx with cfepim, - IVF - reports of recent c.diff infection treated at [place]. #Hypokalemia - 2.9 - electrolyte replacement. -trend on bmp #Unwitnessed fall - ct imaging negative for acute intracranial bleed/pathology. - PT/OT #Scalp hematoma - noted, no acute findings on ct head/no fracture on ct c spine. - avoid ac at this time, dvt ppx with scd. #Type II MA Elevated troponin on admission, likely supply demand from sepsis Cardiology was consulted on admission #Dementia - AOx 2 only. # Nicotine Abuse. - behavioral health counseling administered which included education on benefits of smoking cessation as well as options for quitting. +15 min. #Advance care planning Disease education conducted, care plan discussed, diagnoses discussed, prognosis discussed, patient is full code, patient acknowledges understanding and agree with care plan, +30 minutes. Dispo: Transfer to med/surg. Tx as UTI. Will d/c Vancomycin . WBC trending down. Start diabetic diet. Plan is to return back to group home. The high probability of a clinically significant, sudden or life threatening deterioration of the [multi] system(s) required my full and direct attention, intervention and personal management. The aggregate critical care time was [60] minutes. This time is in addition to time spent performing reported procedures but includes the following: [x] Data Review and interpretation [x] Patient assessment and monitoring of vital signs [x] Documentation [x] Medication orders and management History Interval history: NO acute complaints. resting comfortably. Hospitalist Physical - Physical exam Narrative exam: Physical Exam: VITAL SIGNS: Reviewed. GENERAL: The patient appears normally developed, Vital signs as documented. dementia. alert HEAD: hematoma on scalp. No signs of head trauma. EYES: Pupils are equal. Extraocular motions intact. EARS: Hearing grossly intact. MOUTH: Oropharynx is normal. NECK: No adenopathy, no JVD. CHEST: Chest with clear breath sounds bilaterally. No wheezes, rales, or rhonchi. CARDIAC: Regular rate and rhythm. S1 and S2, without murmurs, gallops, or rubs. VASCULAR: No Edema. Peripheral pulses normal and equal in all extremities. ABDOMEN: Soft, non tender and non distended. No rebound or guarding, and no masses palpated. Bowel Sounds normal. MUSCULOSKELETAL: Good range of motion of all major joints. Extremities without clubbing, cyanosis or edema. NEUROLOGIC EXAM: Alert and oriented x 2. no focal sensory or strength deficits. PSYCHIATRIC: dementia, confused SKIN: sacral decubitus ulcer, please refer to detail exam as documented in RN skin assessment - Constitutional Vitals: Temp Pulse Resp BP Pulse Ox 98.9 F 93 H 17 124/62 99 05/15/22 04:49 05/15/22 08:00 05/15/22 08:00 05/15/22 04:49 05/15/22 04:49 General appearance: Present: no acute distress, well-nourished HEART Score - HEART Score Troponin: Troponin T 0.143 ng/mL (0.00-0.029) H* 06/30/22 05:23 Results - Labs CBC & Chem 7: 05/14/22 10:30 05/14/22 10:30 Labs: Laboratory Last Values WBC 10.1 K/mm3 (4.5-11.0) 05/14/22 10:30 RBC 2.76 M/mm3 (3.65-5.03) L 05/14/22 10:30 Hgb 8.1 gm/dl (10.1-14.3) L 05/14/22 10:30 Hct 24.3 % (30.3-42.9) L 05/14/22 10:30 MCV 88 fl (79-97) 05/14/22 10:30 MCH 29 pg (28-32) 05/14/22 10:30 MCHC 34 % (30-34) 05/14/22 10:30 RDW 22.9 % (13.2-15.2) H 05/14/22 10:30 Plt Count 505 K/mm3 (140-440) H 05/14/22 10:30 Lymph % (Auto) 12.7 % (13.4-35.0) L 05/14/22 10:30 Randall % (Auto) 9.9 % (0.0-7.3) H 05/14/22 10:30 Eos % (Auto) 0.7 % (0.0-4.3) 05/14/22 10:30 Baso % (Auto) 0.4 % (0.0-1.8) 05/14/22 10:30 Lymph # (Auto) 1.3 K/mm3 (1.2-5.4) 05/14/22 10:30 Randall # (Auto) 1.0 K/mm3 (0.0-0.8) H 05/14/22 10:30 Eos # (Auto) 0.1 K/mm3 (0.0-0.4) 05/14/22 10:30 Baso # (Auto) 0.0 K/mm3 (0.0-0.1) 05/14/22 10:30 Seg Neutrophils % 76.3 % (40.0-70.0) H 05/14/22 10:30 Seg Neutrophils # 7.7 K/mm3 (1.8-7.7) 05/14/22 10:30 PT 14.6 Sec. (12.2-14.9) 05/12/22 01:24 INR 1.00 (0.87-1.13) 05/12/22 01:24 APTT 34.9 Sec. (24.2-36.6) 05/12/22 01:24 Sodium 138 mmol/L (137-145) 05/14/22 10:30 Potassium 2.9 mmol/L (3.6-5.0) L* 05/14/22 10:30 Chloride 111.3 mmol/L (98-107) H 05/14/22 10:30 Carbon Dioxide 17 mmol/L (22-30) L 05/14/22 10:30 Anion Gap 13 mmol/L 05/14/22 10:30 BUN 3 mg/dL (7-17) L 05/14/22 10:30 Creatinine 0.4 mg/dL (0.6-1.2) L 05/14/22 10:30 Estimated GFR > 60 ml/min 05/14/22 10:30 BUN/Creatinine Ratio 8 % 05/14/22 10:30 Glucose 132 mg/dL (65-100) H 05/14/22 10:30 POC Glucose 127 mg/dL (70-105) H 05/15/22 07:21 Lactic Acid 1.30 mmol/L (0.7-2.0) 05/12/22 09:12 Calcium 7.6 mg/dL (8.4-10.2) L 05/14/22 10:30 Total Bilirubin < 0.20 mg/dL (0.1-1.2) 05/12/22 01:24 AST 18 units/L (5-40) 05/12/22 01:24 ALT 7 units/L (7-56) 05/12/22 01:24 Alkaline Phosphatase 131 units/L (35-129) H 05/12/22 01:24 Troponin T 0.143 ng/mL (0.00-0.029) H* 05/12/22 05:23 Total Protein 6.4 g/dL (6.3-8.2) 05/12/22 01:24 Albumin 1.8 g/dL (3.9-5) L 05/12/22 01:24 Albumin/Globulin Ratio 0.4 % 05/12/22 01:24 Triglycerides 92 mg/dL (2-149) 05/12/22 02:18 Cholesterol 116 mg/dL (50-199) 05/12/22 02:18 LDL Cholesterol Direct 36 mg/dL (50-130) L 05/12/22 02:18 HDL Cholesterol 48 mg/dL (40-59) 05/12/22 02:18 Cholesterol/HDL Ratio 2.41 % 05/12/22 02:18 Urine Color Yellow (Yellow) 05/12/22 Unknown Urine Turbidity Slightly-cloudy (Clear) 05/12/22 Unknown Urine pH 6.0 (5.0-7.0) 05/12/22 Unknown Ur Specific [place] 1.016 (1.003-1.030) 05/12/22 Unknown Urine Protein <15 mg/dl mg/dL (Negative) 05/12/22 Unknown Urine Glucose (UA) Neg mg/dL (Negative) 05/12/22 Unknown Urine Ketones Neg mg/dL (Negative) 05/12/22 Unknown Urine Blood Mod (Negative) 05/12/22 Unknown Urine Nitrite Neg (Negative) 05/12/22 Unknown Urine Bilirubin Neg (Negative) 05/12/22 Unknown Urine Urobilinogen < 2.0 mg/dL (<2.0) 05/12/22 Unknown Ur Leukocyte Esterase Lg (Negative) 05/12/22 Unknown Urine WBC (Auto) 35.0 /HPF (0.0-6.0) H 05/12/22 Unknown Urine RBC (Auto) 4.0 /HPF (0.0-6.0) 05/12/22 Unknown U Epithel Cells (Auto) 7.0 /HPF (0-13.0) 05/12/22 Unknown Urine Bacteria (Auto) 2+ /HPF (Negative) 05/12/22 Unknown Urine Mucus Few /HPF 05/12/22 Unknown Urine Yeast (Budding) 2+ /HPF 05/12/22 Unknown Microbiology: Microbiology 05/12/22 Unknown Urine,Clean Catch Urine Culture - Final Klebsiella Oxytoca 05/12/22 05:23 Peripheral/Venous Blood Culture - Preliminary NO GROWTH AFTER 48 HOURS 05/12/22 05:16 Peripheral/Venous Blood Culture - Preliminary NO GROWTH AFTER 48 HOURS Carm[place]/IV: Voiding Method Indwelling Catheter Active Medications - Current Medications Current Medications: Generic Name Dose Route Start Last Admin Trade Name Freq PRN Reason Stop Dose Admin Acetaminophen 650 mg 05/12/22 05:25 Acetaminophen 325 Mg Tab PO Q4H PRN Pain MILD(1-3)/Fever >100.5/[place] Albuterol 2.5 mg 05/12/22 05:25 Albuterol 2.5 Mg/3 Ml Nebu IH Q3HRT PRN Shortness Of Breath Albuterol/Ipratropium 1 ampul 05/13/22 08:00 05/15/22 09:40 Ipratropium/Albuterol Sulfate 3 Ml Ampul.Neb IH 1 ampul TIDRT DIVYA Administration Atorvastatin Calcium 40 mg 05/12/22 22:00 05/14/22 22:01 Atorvastatin 40 Mg Tab PO 40 mg QHS DIVYA Administration Dextrose 0 ml 05/12/22 05:28 05/13/22 05:51 Dextrose 50% In Water (25gm) 50 Ml Syringe IV 15 ml Q30MIN PRN Administration Hypoglycemia Protocol Divalproex Sodium 125 mg 05/12/22 10:00 05/15/22 09:59 Divalproex Sprinkle 125 Mg Cap PO 125 mg DAILY DIVYA Administration Famotidine 10 mg 05/14/22 22:00 05/15/22 09:57 Famotidine 10 Mg Tab PO 10 mg BID DIVYA Administration Dextrose/Sodium Chloride 1,000 mls @ 75 mls/hr 05/13/22 09:00 05/15/22 05:04 D5/0.45ns IV 75 mls/hr DIRECT DIVYA Administration Cefepime HCl 2 gm in 100 mls @ 200 mls/hr 05/13/22 22:00 05/14/22 22:00 Cefepime/Ns 2 Gm/100 Ml IV 200 mls/hr Q24H DIVYA Administration Protocol Insulin Human Lispro 0 unit 05/12/22 07:30 05/15/22 09:29 Insulin Lispro 100 Unit/Ml SUB-Q Not Given ACHS DIVYA Protocol Morphine Sulfate 2 mg 05/12/22 05:25 Morphine 2 Mg/1 Ml Inj IV Q4H PRN Pain, Moderate (4-6) Ondansetron HCl 4 mg 05/12/22 05:25 Ondansetron 4 Mg/2 Ml Inj IV Q8H PRN Nausea And Vomiting Risperidone 0.25 mg 05/12/22 10:00 05/15/22 09:58 Risperidone 0.25 Mg Tab PO 0.25 mg BID DIVYA Administration Sertraline HCl 25 mg 05/12/22 10:00 05/15/22 09:58 Sertraline 25 Mg Tab PO 25 mg DAILY DIVYA Administration Sertraline HCl 50 mg 05/12/22 10:00 05/15/22 09:58 Sertraline 50 Mg Tab PO 50 mg QDAY DIVYA Administration Sodium Chloride 10 ml 05/12/22 10:00 05/15/22 09:59 Sodium Chloride 0.9% 10 Ml Flush Syringe IV 10 ml BID DIVYA Administration Sodium Chloride 10 ml 05/12/22 05:25 Sodium Chloride 0.9% 10 Ml Flush Syringe IV PRN PRN LINE FLUSH Nutrition/Malnutrition Assess - Dietary Evaluation Nutrition/Malnutrition Findings: Nutrition Notes Start: 05/12/22 15:58 Freq: Status: Active Protocol: Document 05/13/22 17:50 FOX (Rec: 05/13/22 18:26 FOX [id number]) Nutrition Notes 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 Current Diet Consistent Carbohydrates - Ground Meats- Diet (since L ). Labs/Tests 05/13: K 3.0, Cl 114.6, CO2 17 , Crea 0.3, Glu 125, Ca 7.5. Pertinent Medications 05/13: D5/0.45ns 1000ml @ 75 ml/hr, others nutritionally unremarkable. 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 No body weight change reported in 1 day. Weight Status Overweight Subjective/Other Information RD consult for difficulty chewing and skin risk assessments. No reports available on Pt's PO intake of meals at the time , will assess at F/U. I will prescribe Ground meats modification to facilitate Pt' s PO intake, while proper MORTGAGE UNDERWRITER recommendations are placed. I strongly recommend MORTGAGE UNDERWRITER evaluation to facilitate Pt's PO intake and prevent from possible aspiration. Pt is on Nasal Cannula, O2 saturation @ 100%, according to Physical Assessment History notes. Pt has missing teeth, according to Physical Assessment History notes. Pt presents difficulty chewing and is swallow impaired, according to Physical Assessment History notes. Pt failed bedside swallow evaluation on 05/12, according to Swallow Screen notes. Pt presents Sacral Decubitus Ulcer stage IV, according to Admission Documents. Pt expressed desire to eat and is more alert today 05/13, according to Progress notes. Percent of energy/protein needs met: Prescribed Consistent Carbohydrates -Ground Meats- Diet provides for energy/ protein needs (2,061 Kcal/91 g ) during LOS. Burn Absent Trauma Present GI Symptoms None Difficulty In Swallowing,Chewing Food Allergy No Skin Integrity/Comment Sacral Decubitus Ulcer stage IV. Minimum of two criteria No Fluid Accumulation N/A Reduced Wheat Inspector Strength N/A (non-severe) Protein-Calorie Malnutrition N\A #1 Nutrition Diagnosis Swallowing difficulty,Biting/ Chewing (masticatory) difficulty Etiology Possibly Dementia. As Evidenced by Signs and Symptoms Pt presents difficulty chewing and is swallow impaired, according to Physical Assessment History notes. Pt failed bedside swallow evaluation on 05/12, according to Swallow Screen notes. Is patient on ventilator? No Is Patient Ambulatory and/or Out of Bed No REE-([place]-St. Jeor-confined to bed) 1294.800 Calculation Used for Recommendations [place]-St Jeor Additional Notes Protein: 1.25-1.5 g/Kg ABW; 81 -97 g/day. Fluids: 1 ml/Kcal, or as per MD. Nutrition Intervention Change Diet Order: Modify diet to Consistent Carbohydrates -Ground Meats- Diet, while MORTGAGE UNDERWRITER recommendations are available. Goal #1 Facilitate PO intake of meals with elemental, textural, or mechanical modification during LOS. Goal #2 Adjust the dietary intervention to better serve Pt's needs and clinical conditions during LOS. Follow-Up By: 05/17/22 Additional Comments Continue monitoring food tolerance, %PO intake of meals , and BM. MORTGAGE UNDERWRITER recommendations and need for ONS.
[2022-05-15 12:01] LABS: Blood Urea Nitrogen 2 mg/dL (7-17); Calcium 7.8 mg/dL (8.4-10.2); Hemolysis Index 0
[2022-05-15 12:16] LABS: BUN/Creatinine Ratio 7
[2022-05-16 04:46] LABS: Basophils # (Auto) 0.1 K/mm3 (0.0-0.1); Eosinophils # (Auto) 0.1 K/mm3 (0.0-0.4); Eosinophils % (Auto) 1.3 % (0.0-4.3); Hematocrit 24.1 % (30.3-42.9); Hemoglobin 7.7 gm/dl (10.1-14.3); Lymphocytes # (Auto) 1.9 K/mm3 (1.2-5.4); Lymphocytes % (Auto) 20.1 % (13.4-35.0); Mean Corpuscular HGB Conc 32 % (30-34); Mean Corpuscular Volume 89 fl (79-97); Monocytes # (Auto) 1.1 K/mm3 (0.0-0.8); Monocytes % (Auto) 11.7 % (0.0-7.3); Platelet Count 532 K/mm3 (140-440); Red Blood Count 2.71 M/mm3 (3.65-5.03)
[2022-05-16 05:19] LABS: Red Cell Distribution Width 23.2 % (13.2-15.2)
--- NOTE | 2022-05-16 07:52 | Discharge Summary ---
Providers - Providers Date of Admission: 05/12/22 05:25 Date of discharge: 05/16/22 Attending physician: DYLLAN BULLARD MD 05/12/22 05:28 Consult to Dietitian/Nutrition [CONS] Routine Physician Instructions: Reason For Exam: Reason for Consult: Diet education 05/12/22 05:37 Consult to Physician [CONS] Routine Comment: Consulting Provider: DANY KRAUSE Physician Instructions: Reason For Exam: Elevated troponin 05/12/22 05:38 Physical Therapy Evaluation and Treat [CONS] Routine Comment: Reason For Exam: Fall 05/12/22 18:30 Consult to PICC Line RN [CONS] Routine Reason For Exam: access Type Line:: PICC Primary care physician: RAIL TRANSPORTATION TABELER Hospitalization Reason for admission: fall Condition: Stable Hospital course: History of present illness: 81-year-old female with past medical history Alzheimer's disease, dementia and diabetes type 2 was brought to the emergency [facility] was unwitnessed. Patient presents with left forehead hematoma. Unable to provide history of present illness due to underlying dementia. Patient noted to have mild hypotension upon arrival Patient had mild hypotension after arrival therefore additional work-up including labs and UA was obtained. CT imaging of head and cervical spine do not reveal any acute abnormality other than scalp hematoma. Patient has a leukocytosis with signs of a urinary tract infection and mild troponin elevation with normal renal function. Patient's mild hypotension responding to IV fluid bolus. Additional orders for blood culture, lactic acid, and 30 mill per KG bolus of normal saline ordered as per sepsis protocol. Repeat troponin pending. IV Rocephin ordered for UTI. Patient to be admitted to the hospitalist service for further treatment Hospital Course 05/15: Awaiting placement. urine Cx growing klebsiella oxytoca. Currently on Cefepime IV...will change to levaquin po. Can discharge back to [facility] once AM labs return and K is normalized. 05/16: K improved. Discharge back to [facility] with rx for levaquin and K supplement. Instructions to follow up with primary care physician for events of this hospitalization and wound care clinic for sacral decubitus ulcer. Assessment and plan #Septic Shock POA #GNR Urinary tract infection # Decubitus ulcer - leukocytosis on admission, downtrending - hypotensive, bolus admin x 3 on 05/12. No pressors required yet. - source most likely UTI. - PICC line ordered - carmona for accurate I/O. - OK with MAP > 65 - blood cx NGTD - urine cx: GNR growing - covid rt pcr - negative - trend fever curve/wbc - empiric abx with cfepim, - IVF - reports of recent c.diff infection treated at [facility]. #Hypokalemia - 2.9 - electrolyte replacement. -trend on bmp #Unwitnessed fall - ct imaging negative for acute intracranial bleed/pathology. - PT/OT #Scalp hematoma - noted, no acute findings on ct head/no fracture on ct c spine. - avoid ac at this time, dvt ppx with scd. #Type II [place] Elevated troponin on admission, likely supply demand from sepsis Cardiology was consulted on admission #Dementia - AOx 2 only. # Nicotine Abuse. Disposition: [address] [facility] Final Discharge Diagnosis (Prints w/discharge instructions): Urinary Tract INfection, septic shock, decubitus ulcer, hypokalemia, fall Time spent for discharge: 35 Core Measure Documentation - Palliative Care Palliative Care/ Comfort Measures: Not Applicable - Core Measures Any of the following diagnoses?: none Exam - Physical Exam Narrative exam: Physical Exam: VITAL SIGNS: Reviewed. GENERAL: The patient appears normally developed, Vital signs as documented. dementia. alert HEAD: hematoma on scalp. No signs of head trauma. EYES: Pupils are equal. Extraocular motions intact. EARS: Hearing grossly intact. MOUTH: Oropharynx is normal. NECK: No adenopathy, no JVD. CHEST: Chest with clear breath sounds bilaterally. No wheezes, rales, or rhonchi. CARDIAC: Regular rate and rhythm. S1 and S2, without murmurs, gallops, or rubs. VASCULAR: No Edema. Peripheral pulses normal and equal in all extremities. ABDOMEN: Soft, non tender and non distended. No rebound or guarding, and no masses palpated. Bowel Sounds normal. MUSCULOSKELETAL: Good range of motion of all major joints. Extremities without clubbing, cyanosis or edema. NEUROLOGIC EXAM: Alert and oriented x 2. no focal sensory or strength deficits. PSYCHIATRIC: dementia, confused SKIN: sacral decubitus ulcer, please refer to detail exam as documented in RN skin assessment - Constitutional Vitals: Temp Pulse Resp BP Pulse Ox 98.7 F 88 18 123/54 99 07/04/22 05:25 05/16/22 05:25 05/15/22 22:20 05/16/22 05:25 05/16/22 05:25 Plan Follow up with: PRIMARY CARE, [Primary Care Provider] - 3-5 Days Prescriptions: levoFLOXacin [Levaquin] 250 mg PO QDAY 5 Days #5 tablet Potassium Chloride 40 meq PO DAILY 3 Days #1 bottle
[2022-05-16] MEDS: FAMOTIDINE 10 MG TAB PO SCH ×2 (10:39→21:33)
[2022-05-16] MEDS: DIVALPROEX SPRINKLE 125 MG CAP PO SCH (10:39)
[2022-05-16] MEDS: SERTRALINE 25 MG TAB PO SCH (10:40)
[2022-05-16] MEDS: SERTRALINE 50 MG TAB PO SCH (10:40)
[2022-05-16] MEDS: levoFLOXacin 250 MG TAB PO SCH (10:40)
[2022-05-16] MEDS: risperiDONE 0.25 MG TAB PO SCH ×2 (10:40→21:34)
[2022-05-16] MEDS: POTASSIUM CHLORIDE ER 20 MEQ TAB PO SCH ×2 (10:45→10:48)
[2022-05-16] MEDS: INSULIN LISPRO 100 UNIT/ML SUB-Q SCH ×6 (10:46→23:37)
[2022-05-16] MEDS: D5W/0.45% NACL 1,000 ML IV SCH (12:05)
[2022-05-16] MEDS ORDERED: POTASSIUM CHLORIDE 20 MEQ PACKET PO ONE (14:15)
--- NOTE | 2022-05-16 18:43 | XRay Report ---
CHEST 1 VIEW INDICATION / CLINICAL INFORMATION: pneumonia, aspiration. COMPARISON: None available. FINDINGS: SUPPORT DEVICES: None. HEART / MEDIASTINUM: No significant abnormality. LUNGS / PLEURA: Mild pulmonary vascular congestion. The lungs are otherwise grossly clear. No focal a giuseppe of consolidation or significant pleural effusion noted. No pneumothorax. ADDITIONAL FINDINGS: No significant additional findings. IMPRESSION: 1. Mild pulmonary vascular congestion. Signer Name: Lakeisha Ray MD Signed: 05/16/2022 6:39 PM Workstation Name: [id number]
[2022-05-17 01:04] LABS: Blood Urea Nitrogen 2 mg/dL (7-17); Calcium 7.8 mg/dL (8.4-10.2); Hemolysis Index 3
[2022-05-17 01:20] LABS: BUN/Creatinine Ratio 7
[2022-05-17 05:45] LABS: Basophils # (Auto) 0.1 K/mm3 (0.0-0.1); Basophils % (Auto) 0.7 % (0.0-1.8); Eosinophils # (Auto) 0.2 K/mm3 (0.0-0.4); Eosinophils % (Auto) 2.2 % (0.0-4.3); Hematocrit 25.4 % (30.3-42.9); Mean Corpuscular HGB Conc 32 % (30-34); Mean Corpuscular Volume 88 fl (79-97); Monocytes # (Auto) 1.1 K/mm3 (0.0-0.8); Monocytes % (Auto) 12.5 % (0.0-7.3); Platelet Count 505 K/mm3 (140-440); Red Blood Count 2.88 M/mm3 (3.65-5.03)
[2022-05-17 06:06] LABS: Red Cell Distribution Width 22.6 % (13.2-15.2)
[2022-05-17] MEDS: D5W/0.45% NACL 1,000 ML IV SCH (06:15)
[2022-05-17] MEDS: INSULIN LISPRO 100 UNIT/ML SUB-Q SCH (08:12)
[2022-05-17] MEDS: DIVALPROEX SPRINKLE 125 MG CAP PO SCH (09:13)
[2022-05-17] MEDS: risperiDONE 0.25 MG TAB PO SCH (09:13)
[2022-05-17] MEDS: SERTRALINE 25 MG TAB PO SCH (09:13)
[2022-05-17] MEDS: SERTRALINE 50 MG TAB PO SCH (09:13)
[2022-05-17] MEDS: POTASSIUM CHLORIDE ER 20 MEQ TAB PO SCH (09:13)
[2022-05-17] MEDS: FAMOTIDINE 10 MG TAB PO SCH (09:13)
[2022-05-17] MEDS: levoFLOXacin 250 MG TAB PO SCH (09:13)
[2022-05-17 10:18] LABS: Hemolysis Index 8
[2022-05-17 10:28] LABS: BUN/Creatinine Ratio 3; Blood Urea Nitrogen < 1 mg/dL (7-17)
--- NOTE | 2022-05-17 11:45 | Discharge Summary ---
Providers - Providers Date of Admission: 05/12/22 05:25 Date of discharge: 05/17/22 Attending physician: YASHIRA DILL 05/12/22 05:28 Consult to Dietitian/Nutrition [CONS] Routine Physician Instructions: Reason For Exam: Reason for Consult: Diet education 05/12/22 05:37 Consult to Physician [CONS] Routine Comment: Consulting Provider: DANY KRAUSE Physician Instructions: Reason For Exam: Elevated troponin 05/12/22 05:38 Physical Therapy Evaluation and Treat [CONS] Routine Comment: Reason For Exam: Fall 05/12/22 18:30 Consult to PICC Line RN [CONS] Routine Reason For Exam: access Type Line:: PICC 05/16/22 18:17 Consult to Case Management [CONS] Routine Services Needed at Discharge: Home O2 Notified:: APOLLO Primary care physician: DEMOGRAPHIC ANALYST Hospitalization Reason for admission: UTI Condition: Stable Hospital course: 81-year-old female with past medical history Alzheimer's disease, dementia and diabetes type 2 was brought to the emergency room [facility]. Fall was unwitnessed. Patient presents with left forehead hematoma. Unable to provide history of present illness due to underlying dementia. Patient noted to have mild hypotension upon arrival Patient had mild hypotension after arrival therefore additional work-up in cluding labs and UA was obtained. CT imaging of head and cervical spine do not reveal any acute abnormality other than scalp hematoma. Patient has a leukocytosis with signs of a urinary tract infection and mild troponin elevation with normal renal function. Patient's mild hypotension responding to IV fluid bolus. Additional orders for blood culture, lactic acid, and 30 mill per KG bolus of normal saline ordered as per sepsis protocol. Repeat troponin pending. IV Rocephin ordered for UTI. Patient to be admitted to the hospitalist service with diagnosis below Hospital course by disease process. #Septic Shock POA #Klebsiella urinary tract infection # Decubitus ulcer - leukocytosis on admission - hypotensive, bolus admin x 3 on 05/12. No pressors required - source most likely UTI. - blood cx NGTD - urine cx: Klebsiella - covid rt pcr - negative #Hypokalemia - 2.9 on admission - electrolyte replacement completed. #Unwitnessed fall - ct imaging negative for acute intracranial bleed/pathology. - PT/OT #Scalp hematoma - noted, no acute findings on ct head/no fracture on ct c spine. - avoid ac at this time, dvt ppx with scd. #Type II [place] Elevated troponin on admission, likely supply demand from sepsis Cardiology was consulted on admission #Dementia - AOx 2 only. Hospital Course 05/15: Awaiting placement. urine Cx growing klebsiella oxytoca. Currently on Cefepime IV...will change to levaquin po. Can discharge back to [facility] once AM labs return and K is normalized. 05/16: K improved. Discharge back to [facility] with rx for levaquin and K supplement. Instructions to follow up with primary care physician for events of this hospitalization and wound care clinic for sacral decubitus ulcer. 05/17: Patient will be discharged back to [facility] intermediate. Patient has a prescription for Levaquin. Dedicated discharge time 35 minutes Disposition: 03 [facility] Core Measure Documentation - Palliative Care Palliative Care/ Comfort Measures: Not Applicable Exam - Constitutional Vitals: Temp Pulse Resp BP Pulse Ox 98.7 F 88 17 123/54 100 05/16/22 05:25 05/16/22 05:25 05/16/22 20:38 05/16/22 05:25 05/17/22 07:14 Plan Follow up with: PRIMARY MD MITCHEL [Primary Care Provider] - 3-5 Days Prescriptions: levoFLOXacin [Levaquin] 250 mg PO QDAY 5 Days #5 tablet Potassium Chloride 40 meq PO DAILY 3 Days #1 bottle
[2022-05-17 14:49] VITALS: BP 129/63
== END 2022-05-17 16:04 | DRG 871 ==
LOC: ED 23:57 → IMCU 05-12 05:25 → 3A 05-14 18:14
PROVIDERS: ADMIT Hospitalist; ATTEND Hospitalist
DX: A41.9 Sepsis, unspecified organism (principal); R65.21 Severe sepsis with septic shock; I21.A1 Myocardial infarction type 2; N39.0 Urinary tract infection, site not specified; S00.03XA Contusion of scalp, initial encounter; E11.9 Type 2 diabetes mellitus without complications; Z20.822 Contact with and (suspected) exposure to COVID-19; W18.39XA Other fall on same level, initial encounter; Y93.89 Activity, other specified; Y92.89 Other specified places as the place of occurrence of the external cause; Y99.8 Other external cause status; G30.9 Alzheimer's disease, unspecified; F02.80 Dementia in other diseases classified elsewhere, unspecified severity, without behavioral disturbance, psychotic disturbance, mood disturbance, and anxiety; L89.159 Pressure ulcer of sacral region, unspecified stage; Z79.84 Long term (current) use of oral hypoglycemic drugs; F17.200 Nicotine dependence, unspecified, uncomplicated; Z82.49 Family history of ischemic heart disease and other diseases of the circulatory system; E87.6 Hypokalemia; B96.1 Klebsiella pneumoniae [K. pneumoniae] as the cause of diseases classified elsewhere
CPT/HCPCS: 36415; 70450; 71045; 72125; 80048; 80053; 80061; 81001; 82140; 82962; 84484; 85025; 85610; 85730; 87040; 87076; 87086; 87186; 93005; 94640; 94760; G0378; J3490; J7070; J0692; J0696; J3370; J3480; J7030; J7050; J7120; U0003